=== PATIENT | female | born 2000 | race Caucasian/White ===

== ENCOUNTER 2021-10-05 18:41 | Emergency (ER) | payer MEDICAID, SELFPAY ==
[2021-10-05 19:23] VITALS: BMI 21.6
--- NOTE | 2021-10-05 19:55 | PC.NURSE ---
lab in with patient for blood draw
[2021-10-05 20:17] LABS: Microscopic, Urine URINE MICROSCOPIC (MICROSCOPIC)
[2021-10-05 20:25] LABS: Appearance,Urine CLEAR (Clear); Bilirubin,Urine Negative (Negative); Blood, Urine 3+ (Negative); Color,Urine YELLOW (Yellow); Glucose,Urine (UA) Negative (Negative); Ketones,Urine Negative (Negative); Leukocyte Esterase,Urine 1+ (Negative); Nitrate,Urine Negative (Negative); Protein,Urine Negative (Negative); Urobilinogen,Urine 0.2 EU/dl (0.2)
[2021-10-05 20:31] LABS: Basophils # 0.1 K/mm3 (0-0.2); Basophils % 1.7 % (0.1-2.0); Eosinophils # 0.3 K/mm3 (0.0-0.4); Eosinophils % 3.2 % (0.1-12.0); Hematocrit 46.1 % (37.0-47.0); Hemoglobin 14.8 g/dL (12.2-16.2); Lymphocytes # 2.2 K/mm3 (0.7-4.5); Lymphocytes % 26.5 % (10-50); Mean Corpuscular Hemoglobin 29.5 pg (27.0-31.2); Mean Corpuscular Volume 91.9 fl (81-99); Mean Platelet Volume 7.5 fl (7.4-10.4); Monocytes # 0.5 K/mm3 (0.1-1.0); Monocytes % 6.3 % (1.7-9.3); Neutrophils # 5.1 K/mm3 (1.8-7.8); Neutrophils % 62.2 % (37.0-80.0); Platelet Count 406 K/mm3 (142-424); Red Blood Count 5.01 M/mm3 (4.20-5.40); Red Cell Distribution Width 13.7 % (11.5-17.5); White Blood Count 8.2 K/mm3 (4.8-10.8)
[2021-10-05 20:36] LABS: Urine Pregnancy, HCG Qual. Negative (Negative)
--- NOTE | 2021-10-05 20:36 | PC.NURSE ---
s/w Lab to check time on test. Melony states that it is completed
--- NOTE | 2021-10-05 20:48 | HMH.EDUROGF ---
ED Disposition Clinical Impression: DUB (dysfunctional uterine bleeding) Disposition: Home, Self-Care Condition on Discharge: Good Instructions: DI for Vaginal Bleeding Additional Instructions: fluids and call pcp and tug boat captain for follow up Referrals: Provider,Referral, MD [Primary Care Provider] - - Critical Care Critical Care Time: No Attestation: On 10/05/21, the high probability of a clinically significant, sudden or life threatening deterioration of the following system(s) required my full and direct attention, intervention and personal management. The time I documented below is in addition to time spent performing reported procedures but includes the following listed in this critical care notation. Medical Decision Making - Medical Records Medical records reviewed: Yes: I reviewed the patient's medical records. - West Inquiry Pt receiving controlled substance: No - Lab Data Lab results reviewed: Yes: I reviewed the patient's lab results. Lab Results 10/05/21 19:50: WBC 8.2, RBC 5.01, Hgb 14.8, Hct 46.1, MCV 91.9, MCH 29.5, MCHC 32.0, RDW 13.7, Plt Count 406, MPV 7.5, Neut % (Auto) 62.2, Lymph % (Auto) 26.5, [place] % (Auto) 6.3, Eos % (Auto) 3.2, Baso % (Auto) 1.7, Neut # (Auto) 5.1, Lymph # (Auto) 2.2, [place] # (Auto) 0.5, Eos # (Auto) 0.3, Baso # (Auto) 0.1 10/05/21 20:00: Urine HCG, Qual Negative Result diagrams: 10/05/21 19:50 Orders (Tests/Meds): ED MEDICATIONS Generic Name Dose Route Start Last Admin Trade Name Freq PRN Reason Stop Dose Admin Lactated Ringer's 1,000 mls @ 999 mls/hr 10/05/21 20:15 10/05/21 20:05 Lactated Ringer's 1000 Ml Bag IV 10/05/21 21:15 999 mls/hr .Q1H1M KAMRAN Administration ORDERS Category Date Time Status ABO/RH Type Stat BBK 10/05/21 19:48 Received HCG,Quantitative Stat Lab 10/05/21 19:48 Received UA [Urinalysis and Microscopic] Stat Lab 10/05/21 20:00 Received Medical Decision Narrative: has abn vaginal bleeding with neg preg test and stable vital signs and blood work Female Urogenital HPI - General Stated complaint: Home Preg test +, Bleeding Time Seen by Provider: 10/05/21 20:48 Mode of Arrival: Ambulatory Source of Information: Patient, Significant Other, Medical Record Limitations: No Limitations - History of Present Illness HPI Narrative: has vag bleeding and crampy pain - pos home preg test MD Complaint: vaginal bleeding Onset (ago): hour(s) Severity: moderate Sexual activity: yes : Unknown Associated symptoms: denies other symptoms - Related Data Home Medications Medication Instructions Recorded Confirmed No Known Home Medications 10/05/21 10/05/21 Allergies Allergy/AdvReac Type Severity Reaction Status Date / Time No Known Allergies Allergy Verified 10/05/21 19:32 [facility] History - Hepatitis A Screen Attestation statement:: This patient has been screened for Hepatitis A risk factors. I have reviewed the patient's past medical history: Yes ROS Obtained: Yes All systems reviewed & no additional complaints - Constitutional Constitutional: Denies fever(s) - Eyes Eyes: Denies change in vision - ENT Ears, Nose, Mouth, and Throat: Denies sore throat - Cardiovascular Cardiovascular: Denies chest pain - Respiratory Respiratory: Denies shortness of breath - Gastrointestinal Gastrointestingal: Denies: abdominal pain - Genitourinary Female Genitourinary: Reports as per HPI, Reports abnormal vaginal bleeding - Musculoskeletal Musculoskeletal: Denies joint swelling - Integumentary/Breasts Skin/Breast: Denies rash - Neurologic Neurologic: Denies seizure-like activity Physical Exam - General General appearance: alert - Head Head exam: normocephalic - Eye Eye exam: Present: PERRL, EOMI - ENT ENT exam: Present: mucous membranes moist - Neck Neck exam: Present: trachea midline - Respiratory Respiratory exam: Absent: respiratory distress - Cardiovas
[2021-10-05 21:02] LABS: HCG,Quantitative < 2 mIU/ml (0-5.42)
[2021-10-05 21:05] VITALS: BP 120/88; PULSE 65; RESP 16; TEMP 36.7; O2SAT 99
[2021-10-05 21:05] LABS: Bacteria,Urine 1+ /lpf; RBC,Urine 50-100 #/hpf (0-3)
== END 2021-10-05 21:19 | disposition home or self-care (01) ==
PROVIDERS: Emergency Provider Emergency Medicine
DX: N93.8 Other specified abnormal uterine and vaginal bleeding (principal)
CPT/HCPCS: 81001; 81025; 84702; 85025; 86900; 86901; 87086; 87088; 87186; 96360; 96365

== ENCOUNTER → 2021-12-06 15:59 | Outpatient (CLI) | payer MEDICAID, SELFPAY ==
[2021-12-06 17:37] LABS: HCG,Quantitative 6673 mIU/ml (0-5.42)
== END ==
PROVIDERS: Visit Provider Obstetrics & Gynecology
DX: Z34.90 Encounter for supervision of normal pregnancy, unspecified, unspecified trimester (principal)
CPT/HCPCS: 36415; 84702

== ENCOUNTER → 2021-12-08 13:08 | Outpatient (CLI) | payer MEDICAID, SELFPAY ==
[2021-12-08 14:06] LABS: HCG,Quantitative 12791 mIU/ml (0-5.42)
== END ==
PROVIDERS: Visit Provider Obstetrics & Gynecology
DX: Z34.90 Encounter for supervision of normal pregnancy, unspecified, unspecified trimester (principal)
CPT/HCPCS: 36415; 84702

== ENCOUNTER 2021-12-14 03:35 | Emergency (ER) | payer MEDICAID, SELFPAY ==
[2021-12-14 03:36] VITALS: BP 120/77; PULSE 90; RESP 20; TEMP 36.9; O2SAT 98; BMI 23.6
[2021-12-14 05:21] VITALS: BP 128/80; PULSE 85; PULSE 87; O2SAT 100
--- NOTE | 2021-12-14 05:28 | HMH.EDDENT ---
ED Disposition Clinical Impression: Dental caries, Pain, dental Qualifiers: Weeks of gestation: unspecified Qualified Code(s): Z34.90 - Encounter for supervision of normal , unspecified, unspecified trimester Disposition: Home, Self-Care Condition on Discharge: Good Instructions: DI for Dental Pain Additional Instructions: no motrin and call ob this am or pcp Prescriptions: cephALEXin [cephALEXin 500mg capsule*] 500 mg PO TID #30 cap Transmission Status: Pending to [id number] Referrals: Provider,MD Frankie [Primary Care Provider] - Shanel Rodas DO [Physician] - Ivan Bentley MD [Staff Physician] - Elvia Martinez MD [Staff Physician] - - Critical Care Critical Care Time: No Attestation: On 12/14/21, the high probability of a clinically significant, sudden or life threatening deterioration of the following system(s) required my full and direct attention, intervention and personal management. The time I documented below is in addition to time spent performing reported procedures but includes the following listed in this critical care notation. Medical Decision Making - Medical Records Medical records reviewed: Yes: I reviewed the patient's medical records. - [place] Inquiry Pt receiving controlled substance: No Vital Signs: 12/14/21 03:36 12/14/21 05:21 Temperature 98.5 F Temperature Source Oral Pulse Rate 85 Pulse Rate [Right] 90 Respiratory Rate 20 Blood Pressure 128/80 Blood Pressure [Right Arm] 120/77 Blood Pressure Mean 91 Blood Pressure Mean [Right Arm] 91 Blood Pressure Source [Right Arm] Automatic Cuff 02 Sat by Pulse Oximetry 98 100 Oxygen Delivery Method Room Air Room Air Orders (Tests/Meds): ED MEDICATIONS Generic Name Dose Route Start Last Admin Trade Name Freq PRN Reason Stop Dose Admin Benzocaine/Butamben/Tetracaine HCl 1 gm 12/14/21 04:58 12/14/21 05:05 Tetracaine/Benzocaine/Butamben 56 Gm [place] TP 01/13/22 04:57 1 gm NEEDED PRN Administration dental pain Discontinued Medications Generic Name Dose Route Start Last Admin Trade Name Freq PRN Reason Stop Dose Admin Lidocaine HCl 15 ml 12/14/21 04:58 12/14/21 05:05 Lidocaine 2% Viscous Anna 15ml Udc PO 12/14/21 04:59 15 ml ONCE ONE Administration Medical Decision Narrative: please call ob for follow up and dentist and use meds as directed Dental HPI - General Chief complaint: Dental/Oral Stated complaint: tooth pain x2 days Time Seen by Provider: 12/14/21 05:28 Mode of Arrival: Family Vehicle Source of Information: Patient, Significant Other, Medical Record Limitations: No Limitations Description of Symptoms (Recalled from ER Triage Doc. by RN): Pt c/o toothache for 2 days to R & lower side. It is a broken tooth with decay. Pt also reports to be 6 wk . Denies any fever or chills. She has not seen a dentist, though reports she was told she need to have her teeth removed. - History of Present Illness HPI Narrative: has dental pain rt lower jaw sec to caries MD Complaint: tooth pain Onset (ago): day(s) Duration: intermittent Severity: moderate Relieving factors: nothing Context: history of dental caries, poor dental care Treatment prior to arrival: none - Related Data Previous Rx's Medication Instructions Recorded cephALEXin [cephALEXin 500mg 500 mg PO TID #30 cap 12/14/21 capsule*] Allergies Allergy/AdvReac Type Severity Reaction Status Date / Time No Known Allergies Allergy Verified 10/05/21 19:32 [facility] History - Hepatitis A Screen Attestation statement:: This patient has been screened for Hepatitis A risk factors. I have reviewed the patient's past medical history: Yes ROS Obtained: Yes All systems reviewed & no additional complaints - Constitutional Constitutional: Denies fever(s) - Eyes Eyes: Denies change in vision - ENT Ears, Nose, Mouth, and Throat: Reports as per HPI, Repor
[2021-12-14 06:12] VITALS: BP 127/72; PULSE 72; RESP 17; TEMP 36.7; O2SAT 99
== END 2021-12-14 06:13 | disposition home or self-care (01) ==
PROVIDERS: Emergency Provider Emergency Medicine
DX: K02.9 Dental caries, unspecified (principal); Z34.90 Encounter for supervision of normal pregnancy, unspecified, unspecified trimester
CPT/HCPCS: 99283

== ENCOUNTER → 2021-12-27 09:06 | Outpatient (CLI) | payer MEDICAID, SELFPAY ==
--- NOTE | 2021-12-27 09:19 | US_ITS ---
FINAL REPORT CLINICAL HISTORY: dates FINDINGS: PELVIC ULTRASOUND A single living intrauterine is present. A yolk sac is identified. Cardiac activity is confirmed at 153 beats per minute. Estimated gestational age is 8 weeks 1 days based on a crown-rump length of 1.6 cm. Appropriate amount of fluid is present. The right ovary measures 3.6 cm and the left ovary measures 2.3 cm. There is a 1.5 cm right ovarian cyst. IMPRESSION: Single living intrauterine with an estimated gestational age of 8 weeks 1 day. Reviewed, Interpreted and Dictated by Amrik Henderson III, MD Transcribed by Clyde Burrell Authenticated and [facility]
== END ==
PROVIDERS: Visit Provider Obstetrics & Gynecology
DX: Z34.90 Encounter for supervision of normal pregnancy, unspecified, unspecified trimester (principal)
CPT/HCPCS: 76801

== ENCOUNTER → 2022-01-06 05:57 | Outpatient (CLI) | payer MEDICAID, SELFPAY | PROVIDERS: Visit Provider Obstetrics & Gynecology | DX: Z34.90 Encounter for supervision of normal pregnancy, unspecified, unspecified trimester (principal) | CPT/HCPCS: 87086 ==

== ENCOUNTER → 2022-01-24 15:30 | Outpatient (CLI) | payer MEDICAID, SELFPAY ==
[2022-01-24 17:58] LABS: Basophils # 0.1 K/mm3 (0-0.2); Basophils % 0.8 % (0.1-2.0); Eosinophils # 0.2 K/mm3 (0.0-0.4); Eosinophils % 2.3 % (0.1-12.0); Hematocrit 39.9 % (37.0-47.0); Lymphocytes # 1.6 K/mm3 (0.7-4.5); Lymphocytes % 16.3 % (10-50); Mean Corpuscular HGB Conc 32.7 g/dL (31.8-35.4); Mean Corpuscular Hemoglobin 30.3 pg (27.0-31.2); Mean Corpuscular Volume 92.6 fl (81-99); Mean Platelet Volume 7.9 fl (7.4-10.4); Monocytes # 0.6 K/mm3 (0.1-1.0); Monocytes % 5.9 % (1.7-9.3); Neutrophils # 7.1 K/mm3 (1.8-7.8); Neutrophils % 74.7 % (37.0-80.0); Platelet Count 368 K/mm3 (142-424); White Blood Count 9.5 K/mm3 (4.8-10.8)
[2022-01-26 07:13] LABS: Hepatitis B Surface Antigen Negative (Negative); Hepatitis C Antibody 0.1 s/co ratio (0.0-0.9)
[2022-01-26 08:20] LABS: HIV Screen 4th Generation wRfx Non Reactive (Non Reactive); Rubella Antibodies, IgG 3.19 index (Immune >0.99)
[2022-01-26 11:32] LABS: Rapid Plasma Reagin Ab Titer Non Reactive (NonRea<1:1)
== END ==
PROVIDERS: Visit Provider Obstetrics & Gynecology
DX: Z34.90 Encounter for supervision of normal pregnancy, unspecified, unspecified trimester (principal)
CPT/HCPCS: 36415; 85025; 86592; 86703; 86762; 86850; 87340; 87380; G0432

== ENCOUNTER → 2022-03-29 10:03 | Outpatient (CLI) | payer MEDICAID, SELFPAY ==
--- NOTE | 2022-03-29 10:11 | US_ITS ---
FINAL REPORT CLINICAL HISTORY: US OB Complete FINDINGS: There is a single live intrauterine gestation. Presentation is cephalic. The cervix is closed and measures 3.1 cm. Placenta is posterior, grade 1. movement is noted. The heart rate is measured at 155 beats per minute. Three-vessel cord with satisfactory umbilical cord insertion. Four-chamber heart is noted. brain and ventricles are unremarkable. Chest and diaphragm are unremarkable. ABDOMEN: Both kidneys are unremarkable. Stomach is unremarkable. SPINE: No anomalies identified. Both arms and legs noted. AMNIOTIC FLUID: Appropriate amount. MEASUREMENTS: ULTRASOUND AGE: 21 weeks 1 days. GESTATION AGE: 1 weeks 2 days. ESTIMATED WEIGHT: 385 g GROWTH PERCENTILE: 26% LMP percentile BPD: 5.2 cm corresponding with 21 weeks 6 days. OFD: 6.5 cm corresponding with 21 weeks 30 days. HC: 18.4 cm corresponding with 20 weeks 6 days. AC: 16 cm corresponding with 21 weeks 1 days. FL: 3.4 cm corresponding with 20 weeks 5 days. CEREBELLUM: 2.1 cm corresponding with 21 weeks 2 days. HUMERUS: 3.2 cm corresponding with 20 weeks 6 days. HC/AC: 1.16 CI: 81% FL/BPD: 65% FL/AC: 21% IMPRESSION: Single living IUP with an ultrasound age of 21 weeks 1 days. No anomalies noted. Reviewed, Interpreted and Dictated by Amrik Henderson III, MD Transcribed by Kirstie Ramos Authenticated and [facility]
== END ==
PROVIDERS: PCP Obstetrics & Gynecology; Visit Provider Obstetrics & Gynecology
DX: Z34.90 Encounter for supervision of normal pregnancy, unspecified, unspecified trimester (principal); Z3A.14 14 weeks gestation of pregnancy
CPT/HCPCS: 76811

== ENCOUNTER → 2022-05-15 12:43 | Outpatient (CLI) | payer MEDICAID, SELFPAY ==
[2022-05-15 13:24] LABS: Basophils % 0.3 % (0.1-2.0); Eosinophils # 0.4 K/mm3 (0.0-0.4); Eosinophils % 3.5 % (0.1-12.0); Hematocrit 39.3 % (37.0-47.0); Hemoglobin 12.7 g/dL (12.2-16.2); Lymphocytes # 1.7 K/mm3 (0.7-4.5); Lymphocytes % 17.1 % (10-50); Mean Corpuscular HGB Conc 32.4 g/dL (31.8-35.4); Mean Corpuscular Hemoglobin 30.2 pg (27.0-31.2); Mean Corpuscular Volume 93.3 fl (81-99); Mean Platelet Volume 7.1 fl (7.4-10.4); Monocytes # 0.7 K/mm3 (0.1-1.0); Monocytes % 6.9 % (1.7-9.3); Neutrophils # 7.3 K/mm3 (1.8-7.8); Neutrophils % 72.2 % (37.0-80.0); Platelet Count 352 K/mm3 (142-424); Red Blood Count 4.22 M/mm3 (4.20-5.40); Red Cell Distribution Width 14.8 % (11.5-17.5)
[2022-05-15 13:56] LABS: Glucose,Fasting 67 mg/dl (74-100)
[2022-05-15 15:42] LABS: Glucose 1 Hour 81 mg/dL (74-100)
== END ==
PROVIDERS: PCP Obstetrics & Gynecology; Visit Provider Obstetrics & Gynecology
DX: Z34.90 Encounter for supervision of normal pregnancy, unspecified, unspecified trimester (principal)
CPT/HCPCS: 36415; 82951; 85025

== ENCOUNTER → 2022-06-20 13:21 | Outpatient (CLI) | payer MEDICAID, SELFPAY ==
--- NOTE | 2022-06-20 13:21 | US_ITS ---
FINAL REPORT CLINICAL HISTORY: sga FINDINGS: There is a single live intrauterine gestation. Presentation is cephalic. Placenta is posterior, grade 1. The cervix measures 3.1 cm. Heart rate is 133 beats per minute. The fetus is active. AMNIOTIC FLUID: Appropriate amount. PRATEEK: 15.3 cm MEASUREMENTS: ULTRASOUND AGE: 33 weeks 4 days. GESTATION AGE: 33 weeks 1 days. ESTIMATED WEIGHT: 2173 g GROWTH PERCENTILE: 47% LMP percentile BPD: 8.6 cm corresponding with 34 weeks 4 days. OFD: 10.6 cm corresponding with 33 weeks 3 days. HC: 30.3 cm corresponding with 33 weeks 5 days. AC: 29.9 cm corresponding with 33 weeks 6 days. FL: 6.2 cm corresponding with 32 weeks 0 days. HC/AC: 1.01 CI: 81% FL/BPD: 72% FL/AC: 21% IMPRESSION: Single living IUP with an ultrasound age of 33 weeks 4 days. PRATEEK of 15.3 cm Reviewed, Interpreted and Dictated by Amrik Henderson III, MD Transcribed by Kirstie Ramos Authenticated and [facility]
== END ==
PROVIDERS: PCP Obstetrics & Gynecology; Visit Provider Obstetrics & Gynecology
DX: O36.5990 Maternal care for other known or suspected poor fetal growth, unspecified trimester, not applicable or unspecified (principal)
CPT/HCPCS: 76816

== ENCOUNTER 2022-07-12 14:10 | Emergency (ER) | payer MEDICAID, SELFPAY ==
[2022-07-12 14:23] VITALS: BP 119/66; PULSE 98; RESP 17; TEMP 36.4; O2SAT 98; BMI 25.0
--- NOTE | 2022-07-12 15:26 | HMH.EDGENADL ---
Discharge Plan Disposition Patient Disposition: Home, Self-Care Condition: Good Prescriptions Prescriptions: No Action Classic 28 mg iron- 800 mcg tablet 1 tab PO DAILY Qty: 30 11RF omeprazole 20 mg capsule,delayed release(DR/EC) 20 mg PO DAILY Qty: 30 4RF Referrals Follow up/Referrals: Provider,Referral, [Primary Care Provider] - See instructions Clinical Impressions Clinical Impression: Pilonidal cyst with abscess Instructions Patient Instructions: Pilonidal Cyst, DI for Incision and Drainage of a Skin Abscess Discharge ED Provider: Abel Benito General Adult HPI General Chief complaint: Skin/Abscess/Foreign Body Stated complaint: Possible boil on bottom 36 weeks Time Seen by Provider: 07/12/22 14:30 Mode of Arrival: Ambulatory Source of Information: Patient Limitations: No Limitations Description of Symptoms (Recalled from ER Triage Doc. by RN): Patient reports 3 days ago a boil came up on her sacral area. Denies history of this in the past. No drainage, fever, chills. Patient is 36 wks . History of Present Illness HPI narrative: Patient is a 21-year-old female with no pertinent past medical history who presents with concern for pilonidal abscess. She says that over the last 3 days she has had pain in the upper part of her gluteal cleft. She says he never had this happen in the past. She says it is gotten substantially worse today and she wanted to come in for evaluation. She does endorse some chills. Denies any fever. Denies any chest or abdominal pain. Denies any drainage from the area. Related Data Previous Rx's Medication Instructions Recorded vits no.126-ferrous fum 1 tab PO DAILY #30 tabs 01/05/22 28 mg iron-folic acid 800 mcg tablet (Classic ) omeprazole 20 mg capsule,delayed 20 mg PO DAILY #30 caps 07/04/22 release Allergies Allergy/AdvReac Type Severity Reaction Status Date / Time No Known Allergies Allergy Verified 07/04/22 15:21 [facility] Disclaimer: The information contained in this section may have been updated after the patient was seen, as this information can be updated by other users. Social History Smoking Status: Never smoker alcohol intake: never substance use type: denies use current occupational status: employed Travel in the last 8 weeks: None ROS Obtained: Yes All systems reviewed & no additional complaints except as documented A 14 point review of system was obtained and otherwise negative except per HPI Physical Exam General General appearance: alert and in no apparent distress Head Head exam: atraumatic, normocephalic and normal inspection Eye Eye exam: Present normal appearance, PERRL and EOMI ENT ENT exam: Present normal exam, normal oropharynx, mucous membranes moist and normal external ear exam Neck Neck exam: Present normal inspection, full ROM and trachea midline; Absent meningismus or lymphadenopathy Chest Chest inspection: Present normal inspection and symmetric chest wall rise; Absent tenderness Respiratory Respiratory exam: Present normal lung sounds bilaterally; Absent respiratory distress Cardiovascular Cardiovascular exam: Present regular rate and normal rhythm Abdominal Exam Abdominal exam: Present soft; Absent distention, tenderness or guarding Extremities Exam Extremities exam: Present normal inspection, full ROM and normal capillary refill; Absent calf tenderness Back Exam Back exam: Present normal inspection; Absent tenderness Neurological Exam Neurological exam: Present alert and oriented X3 Psychiatric Psychiatric exam: Present normal affect and normal mood Skin Skin exam: Present warm, dry, intact and normal color Expanded Skin Exam Type of lesion: Present abscess (4 x 4 centimeter gluteal cleft pilonidal abscess) Lymphatic Lymphatic Findings: no adenopathy Medical Decision Making Medical Recor
[2022-07-12 15:41] VITALS: BP 92/44; PULSE 97; RESP 18; TEMP 36.4; O2SAT 100
== END 2022-07-12 15:45 | disposition home or self-care (01) ==
PROVIDERS: Emergency Provider Student in an Organized Health Care Education/Training Program
DX: L05.01 Pilonidal cyst with abscess (principal); O99.713 Diseases of the skin and subcutaneous tissue complicating pregnancy, third trimester; Z3A.36 36 weeks gestation of pregnancy
CPT/HCPCS: 10080; 10061; 99283; 99284

== ENCOUNTER → 2022-07-18 17:07 | Outpatient (CLI) | payer MEDICAID, SELFPAY | PROVIDERS: Visit Provider Obstetrics & Gynecology | DX: Z34.90 Encounter for supervision of normal pregnancy, unspecified, unspecified trimester (principal); Z3A.35 35 weeks gestation of pregnancy; L05.01 Pilonidal cyst with abscess | CPT/HCPCS: 86403; 87070; 87077; 87186; 87205 ==

== ENCOUNTER 2022-07-31 05:26 | Inpatient (IN) | payer MEDICAID, SELFPAY ==
[2022-07-31 05:38] VITALS: BMI 30.4
[2022-07-31 06:36] LABS: Coronavirus 19, PCR Not Detected (NotDetected); Influenza A, PCR Not Detected (NotDetected); Influenza B, PCR Not Detected (NotDetected); Microscopic, Urine URINE MICROSCOPIC (MICROSCOPIC)
[2022-07-31 06:41] LABS: Basophils # 0.1 K/mm3 (0-0.2); Basophils % 1.4 % (0.1-2.0); Eosinophils # 0.2 K/mm3 (0.0-0.4); Eosinophils % 1.9 % (0.1-12.0); Hematocrit 38.3 % (37.0-47.0); Hemoglobin 12.9 g/dL (12.2-16.2); Lymphocytes # 1.8 K/mm3 (0.7-4.5); Lymphocytes % 21.1 % (10-50); Mean Corpuscular HGB Conc 33.7 g/dL (31.8-35.4); Mean Corpuscular Hemoglobin 29.2 pg (27.0-31.2); Mean Corpuscular Volume 86.4 fl (81-99); Mean Platelet Volume 7.5 fl (7.4-10.4); Monocytes # 0.5 K/mm3 (0.1-1.0); Neutrophils # 5.8 K/mm3 (1.8-7.8); Neutrophils % 69.5 % (37.0-80.0); Platelet Count 316 K/mm3 (142-424); Red Blood Count 4.43 M/mm3 (4.20-5.40); Red Cell Distribution Width 15.2 % (11.5-17.5); White Blood Count 8.3 K/mm3 (4.8-10.8)
[2022-07-31 06:49] LABS: Appearance,Urine CLEAR (Clear); Bilirubin,Urine Negative (Negative); Blood, Urine Negative (Negative); Color,Urine YELLOW (Yellow); Glucose,Urine (UA) Negative (Negative); Ketones,Urine Negative (Negative); Leukocyte Esterase,Urine TRACE (Negative); Nitrate,Urine Negative (Negative); PH,Urine 6.5 (5.0-8.5); Protein,Urine Negative (Negative); Urobilinogen,Urine 0.2 EU/dl (0.2)
[2022-07-31 07:00] LABS: Bacteria,Urine Trace /lpf; WBC,Urine Occasional #/hpf (0-3)
[2022-07-31 07:01] LABS: Amphetamine/Metha Screen,Urine Negative ng/ml (<1000)
[2022-07-31 07:02] LABS: Barbiturates Screen,Urine Negative ng/ml (<200); Benzodiazepines Screen,Urine Negative ng/ml (<200)
[2022-07-31 07:03] LABS: Cannabinoid Screen,Urine Negative ng/ml (<50)
[2022-07-31 07:04] LABS: Cocaine Screen,Urine Negative ng/ml (<300); Methadone Screen,Urine Negative ng/ml (<300)
[2022-07-31 07:05] LABS: Opiate Screen,Urine Negative ng/ml (<300); Phencyclidine Screen,Urine Negative ng/ml (<25)
[2022-07-31 07:06] VITALS: BP 115/71; PULSE 100; RESP 18; TEMP 36.5; O2SAT 98; BMI 30.4
--- NOTE | 2022-07-31 07:15 | HMH.PHAINT1 ---
Pharmacy Intervention Comments: MEDICATION RECONCILIATION COMPLETED ON PATIENT USING EXTERNAL FILL HISTORY FROM PHARMACY. -PEGGY MOELLER, ARANZAD
[2022-07-31 07:34] VITALS: BP 102/60; PULSE 83; RESP 18; TEMP 36.4; O2SAT 98
--- NOTE | 2022-07-31 08:16 | EXP.HP ---
History of Present Illness *Admission Date: 07/31/22 *Reason for visit:: Labor induction *History of present illness: 22 yo admitted for labor induction @ 39 0/7 care at [facility]-- Dr. Martinez RUSTAM 08/07/22; dating by 8 17 ultrasound uncomplicated She has a history of chlamydia cervicitis but cultures were negative during She had pilonidal cyst 3 weeks ago which required I&D (in ED) Packing was replaced during appt 1.5 weeks ago because the original packing fell out She was also started on antibiotics at that time [facility] Disclaimer: The information contained in this section may have been updated after the patient was seen, as this information can be updated by other users. Medical History (Updated 07/31/22 @ 12:23 by Elvia Martinez MD) ASCUS with positive high risk HPV Dental caries No significant past medical history Pilonidal cyst with abscess Family History No significant family history Diabetes Alcoholism Hyperlipidemia Heart attack Cancer Hypertension Stroke Asthma Social History (Updated 07/31/22 @ 07:11 by Racheal Nichols RN) Smoking Status: Never smoker alcohol intake: never substance use type: denies use current occupational status: unemployed Travel in the last 8 weeks: None Review of Systems Constitutional Constitutional: Reports system reviewed and no additional complaints, except as documented and Denies headache(s) ENT Ears, Nose, Mouth, and Throat: Denies headache(s) *Genitourinary Genitourinary: Denies abnormal vaginal bleeding *Neurologic Neurologic: Denies headache(s) and Denies other visual disturbances Meds Home Medications and Allergies Home Medications Medication Instructions Recorded Confirmed Type omeprazole 20 mg capsule,delayed 20 mg PO DAILY Heartburn 07/31/22 07/31/22 History release vits no.126-ferrous fum 1 tab PO DAILY Supplement 07/31/22 07/31/22 History 28 mg iron-folic acid 800 mcg tablet (Classic ) New Prescriptions to Start Prescriptions: Allergies Allergy/AdvReac Type Severity Reaction Status Date / Time No Known Allergies Allergy Verified 07/27/22 15:52 Exam Data for Last 24 hours Vital signs and Labs for Last 24 Hours: Temp Pulse Resp BP Pulse Ox 97.5 F L 83 18 102/60 L 98 07/31/22 07:34 07/31/22 07:34 07/31/22 07:34 07/31/22 07:34 07/31/22 07:34 Laboratory Results - last 24 hr 07/31/22 05:43: Urine Color Yellow, Urine Appearance Clear, Urine pH 6.5, Ur Specific [place] 1.020, Urine Protein Negative, Urine Glucose (UA) Negative, Urine Ketones Negative, Urine Blood Negative, Urine Nitrate Negative, Urine Bilirubin Negative, Urine Urobilinogen 0.2, Ur Leukocyte Esterase Trace, Urine RBC None, Urine WBC Occasional, Ur Squamous Epith Cells 3-5, Urine Bacteria Trace 07/31/22 05:43: SARS-CoV-2 (PCR) Not detected, Influenza A Untype (PCR) Not detected, Influenza Type B (PCR) Not detected 07/31/22 05:43: Urine Opiates Screen Negative, Urine Methadone Screen Negative, Ur Barbituates Screen Negative, Ur Phencyclidine Scrn Negative, Ur Amphetamines Screen Negative, U Benzodiazepines Scrn Negative, Urine Cocaine Screen Negative, U Marijuana (THC) Screen Negative 07/31/22 06:10: WBC 8.3, RBC 4.43, Hgb 12.9, Hct 38.3, MCV 86.4, MCH 29.2, MCHC 33.7, RDW 15.2, Plt Count 316, MPV 7.5, Neut % (Auto) 69.5, Lymph % (Auto) 21.1, [place] % (Auto) 6.0, Eos % (Auto) 1.9, Baso % (Auto) 1.4, Neut # (Auto) 5.8, Lymph # (Auto) 1.8, [place] # (Auto) 0.5, Eos # (Auto) 0.2, Baso # (Auto) 0.1 07/31/22 06:10: Blood Type O Positive, Antibody Screen Negative I & O for Last 24 hours: Intake & Output 07/29/22 07/30/22 07/31/22 08/01/22 11:59 11:59 11:59 11:59 Weight 189 lb 0.001 oz Constitutional Constitutional: no acute distress *Routine HEENT Exam Head: Present normocephalic Eye: Absent conjunctival icterus or scleral injecti
--- NOTE | 2022-07-31 11:16 | P.PN_ITS ---
[facility] Disclaimer: The information contained in this section may have been updated after the patient was seen, as this information can be updated by other users. Medical History No significant past medical history Family History Other Alcoholism Asthma Cancer Diabetes Heart attack Hyperlipidemia Hypertension No significant family history Stroke Social History (Updated 07/31/22 @ 07:11 by Racheal Nichols RN) Smoking Status: Never smoker alcohol intake: never substance use type: denies use current occupational status: unemployed Travel in the last 8 weeks: None [facility] Anesthesia Checklist Patient Identification Patient Identification: Arm Band Structural Data Admitted From: Inpatient Planned Operative Procedure/s: Labor Epidural Consent for Planned Operative Procedure(s) Verified: Yes Verified Documents: Surgical Consent and History and Physical NPO Status Verified Time NPO: 00:00 Additional verifications Anesthesia Reactions: No Airway Assessment C-Spine Mobility Assessed: Yes TMJ Mobility Assessed: Yes Neurological Assessment Level of Consciousness: Awake and Alert Anesthesia Plan Anesthesia Risk discussed: Yes Anesthesia Plan: Verified ASA Class: II Anesthesia Type: Epidural
[2022-07-31 17:29] VITALS: BP 112/72; PULSE 91; RESP 18; TEMP 36.6; O2SAT 98
--- NOTE | 2022-07-31 17:36 | EXP.DN ---
Delivery Note Delivery Date:: 07/31/22 Delivery Time:: 15:22 Anesthesia Type: Epidural Was labor medically induced?: Yes Induction method: per pitocin protocol Gestational age (weeks): 39 delivered prior to 39 weeks?: No Gender: Male at 1 minute: 8 at 5 minutes: 9 Delivery Procedure:: Spontaneous vaginal delivery of vigorous, live born male infant over intact perineum. Delivery precipitous but uncomplicated Nuchal cord x 1 reduced on perineum No shoulder dystocia with delivery placed in SOFIA immediately after delivery, with standard nursing assessment performed by nursing staff Apgars: 8 & 9 Placenta spontaneously expressed and examined; noted to be complete/intact. Vulva, vagina, and cervix inspected; no lacerations present EBL: 300 cc All sponge/needle/instrument counts correct at conclusion of procedure Placental Delivery Description: Spontaneous
[2022-08-01 06:38] LABS: Hematocrit 37.6 % (37.0-47.0); Hemoglobin 12.2 g/dL (12.2-16.2)
--- NOTE | 2022-08-01 08:43 | EXP.ACUTE.PN ---
Subjective *Date: 08/01/22 *Time: 08:43 Interval history: PPD #1 No unusual complaints Ambulating and voiding without difficulty Tolerating regular diet Lochia appropriate and Hgb is stable Pain control is sufficient is doing well Medical Exam Vital signs and Labs for Last 24 Hours: Vital Signs Temp Pulse Resp BP Pulse Ox 07/31/22 17:29 98 F 91 H 18 112/72 98 Intake and Output 07/31/22 08/01/22 08/01/22 19:59 03:59 11:59 Output Total 950 / 950 Balance -950 / -950 Output: Output, Urine Amount 950 / 950 Laboratory Results - last 24 hr 08/01/22 06:26: Hgb 12.2, Hct 37.6 I & O for Labs for Last 24 Hours: Intake & Output 07/29/22 07/30/22 07/31/22 08/01/22 11:59 11:59 11:59 11:59 Output Total 950 / 950 Balance -950 / -950 Weight 189 lb 0.001 oz Comment:: No acute distress Comment:: breathing unlabored Comment:: Regular rate, normal peripheral pulses Comments:: abdomen soft, non-tender, non-distended Comment:: uterine fundus firm below umbilicus Comment:: 1+ edema bilateral lower extremities Comment:: no rash Assessment and Plan *Assessment and plan (1) 39 weeks gestation of : Status: Acute Category: Medical Code(s): Z3A.39 - 39 weeks gestation of (2) Normal spontaneous vaginal delivery: Status: Acute Category: Medical Code(s): O80 - Encounter for full-term uncomplicated delivery Plan Routine care Anticipate discharge home tomorrow
[2022-08-02 07:58] VITALS: BP 102/61; PULSE 85; RESP 18; TEMP 36.8; O2SAT 95
--- NOTE | 2022-08-02 10:38 | EXP.DC.SUM ---
General Admission date:: 07/31/22 Discharge date: 08/02/22 HPI HPI HPI: 22 yo admitted for labor induction @ 39 0/7 care at [facility]-- Dr. Martinez RUSTAM 08/07/22; dating by 8 07/01 ultrasound uncomplicated She has a history of chlamydia cervicitis but cultures were negative during She had pilonidal cyst 3 weeks ago which required I&D (in ED) Packing was replaced during appt 1.5 weeks ago because the original packing fell out She was also started on antibiotics at that time Hospital Course Hospital Course Hospital Course: She was started on IV oxytocin had her membranes ruptured. She progressed to full dilation and delivered spontaneously a liveborn male child at 3:22 PM in the afternoon of July 31, 2022. The baby weighed 7 pounds 12 ounces and was 19-1/2 inches long. He had Apgars of 8 at 1 minute and 9 at 5 minutes. She has done well and has remained afebrile throughout hospitalization. She is eating and drinking and ambulating. She is bottlefeeding. Her lochia is normal. She is discharged home to follow-up with Dr. Martinez in approximately 2 weeks time. She will continue with her vitamins and iron. She is taking [id number] analgesics. She was given the usual instructions with respect to limiting her activity, driving and sexual activity. Her federal judge is Dr. Bellamy. Her condition on discharge is stable and improved. Exam Data for Last 24 hours Vital signs and Labs for Last 24 Hours: Temp Pulse Resp BP Pulse Ox 98 F 91 H 18 112/72 98 07/31/22 17:29 07/31/22 17:29 07/31/22 17:29 07/31/22 17:29 07/31/22 17:29 I & O for Last 24 hours: Intake & Output 07/30/22 07/31/22 08/01/22 08/02/22 11:59 11:59 11:59 11:59 Output Total 950 / 950 Balance -950 / -950 Weight 189 lb 0.001 oz Constitutional Constitutional: no acute distress *Routine HEENT Exam Head: Present normocephalic ENT: Present mucous membranes moist *Routine Respiratory Exam Respiratory: Present normal respiratory effort; Absent accessory muscle use DS: Diagnosis Discharge Diagnosis (1) 39 weeks gestation of : Status: Acute (2) Normal spontaneous vaginal delivery: Status: Acute Meds Home Medications and Allergies Home Medications Medication Instructions Recorded Confirmed Type omeprazole 20 mg capsule,delayed 20 mg PO DAILY Heartburn 07/31/22 07/31/22 History release vits no.126-ferrous fum 1 tab PO DAILY Supplement 07/31/22 07/31/22 History 28 mg iron-folic acid 800 mcg tablet (Classic ) New Prescriptions to Start Prescriptions: Allergies Allergy/AdvReac Type Severity Reaction Status Date / Time No Known Allergies Allergy Verified 07/27/22 15:52 Discharge Plan Disposition Patient Disposition: Home, Self-Care Discharge Order Discharge Orders: Discharge Order (Routine); Ordered 08/02/22 Ordered By: Ivan Bentley Follow up Plan Follow up with: Elvia Martinez MD [Staff Physician] - Enter time for follow up Prescriptions/Medication Reconciliation: Continued omeprazole 20 mg capsule,delayed release(DR/EC) 20 mg PO DAILY Classic 28 mg iron- 800 mcg tablet 1 tab PO DAILY Problem Reconciliation Problems Reviewed?: Yes Patient Discharge Instructions ACTIVITY: No heavy lifting DIET: continue same diet Additional Instructions: Nothing in the vagina for 6 weeks No tub baths Drink plenty of fluids Patient Instructions: Depression, Hemorrhage, DI for Labor and Delivery, Vaginal , DI for Pre-eclampsia, [facility] Post Discharge Instructions, Preventing the Spread of Coronavirus Discharge Instructions Providers Primary Care Provider: Provider,Referral Admit Provider: Elvia Martinez Attending Provider: Elvia Martinez
== END 2022-08-02 14:10 | disposition home or self-care (01) | DRG 806 ==
PROVIDERS: Admitting Provider Obstetrics & Gynecology; Visit Provider Obstetrics & Gynecology
DX: O69.81X0 Labor and delivery complicated by cord around neck, without compression, not applicable or unspecified (principal); L05.01 Pilonidal cyst with abscess; Z37.0 Single live birth; Z23 Encounter for immunization
CPT/HCPCS: 59409 ×2; 36415; 59025; 80305; 81001; 85014; 85018; 85025; 86850; 94761; C1758; C9803; G0283; U0003; U0005

== ENCOUNTER → 2022-12-07 15:02 | Outpatient (CLI) | payer BC, MEDICAID, SELFPAY ==
[2022-12-07 15:48] LABS: Basophils % 0.3 % (0.1-2.0); Eosinophils # 0.2 K/mm3 (0.0-0.4); Eosinophils % 1.5 % (0.1-12.0); Hematocrit 43.9 % (37.0-47.0); Hemoglobin 13.9 g/dL (12.2-16.2); Lymphocytes # 1.7 K/mm3 (0.7-4.5); Lymphocytes % 16.9 % (10-50); Mean Corpuscular HGB Conc 31.7 g/dL (31.8-35.4); Mean Corpuscular Hemoglobin 29.3 pg (27.0-31.2); Mean Corpuscular Volume 92.5 fl (81-99); Mean Platelet Volume 7.1 fl (7.4-10.4); Monocytes # 0.9 K/mm3 (0.1-1.0); Monocytes % 8.4 % (1.7-9.3); Neutrophils # 7.4 K/mm3 (1.8-7.8); Neutrophils % 72.9 % (37.0-80.0); Platelet Count 361 K/mm3 (142-424); Red Blood Count 4.75 M/mm3 (4.20-5.40); Red Cell Distribution Width 12.9 % (11.5-17.5); White Blood Count 10.2 K/mm3 (4.8-10.8)
[2022-12-07 15:53] LABS: Urine Pregnancy, HCG Qual. Negative (Negative)
[2022-12-07 16:15] LABS: Chloride 103 mmol/L (98-107); Potassium 3.9 mmoL/L (3.5-5.1); Sodium 139 mmol/L (136-145)
[2022-12-07 16:18] LABS: Anion Gap 14.9 mEq/L (5-15); Blood Urea Nitrogen 12 mg/dl (7-17); Carbon Dioxide 25 mmol/L (22.0-30.0); Estimated Glomerular Filt Rate 104 ml/min (>60); GFR (African American) 125 ML/MIN (>60)
[2022-12-07 16:19] LABS: Calcium 9.1 mg/dl (8.4-10.2); Glucose 83 mg/dl (74-100)
== END ==
PROVIDERS: Visit Provider Surgery
DX: Z01.812 Encounter for preprocedural laboratory examination (principal); L05.01 Pilonidal cyst with abscess
CPT/HCPCS: 36415; 80048; 81025; 85025

== ENCOUNTER 2022-12-08 11:15 | Day surgery (SDC) | payer BC, MEDICAID, SELFPAY ==
[2022-12-08] VITALS (9 sets, daily range): BP systolic 108–130; BP diastolic 54–96; PULSE 74–93; RESP 12–18; TEMP 36.1–36.9; O2SAT 97–100; BMI 28.0
--- NOTE | 2022-12-08 14:23 | EXP.OP.NOTE ---
Date of procedure: 12/08/22 Pre-op Diagnosis:: Pilonidal cyst with abscess Post-op Diagnosis:: Same Procedure performed:: Incision and drainage complex pilonidal cyst with abscess Surgeon:: Amrik Gong MD FRAME FEEDER:: Other Anesthesia: STEPHANI Estimated blood loss (mL): 5 Clinical Note:: Patient is a 22-year-old female from [place] referred for pilonidal cyst with abscess.? She is status post vaginal delivery after induction on 07/31/2022.? She had her care with Dr. Martinez.? She was noted to have pilonidal cyst with abscess upon evaluation in the emergency department on 07/12/2022.? This is her initial symptomatology.? She had bedside incision and drainage performed by by the ER physician at that time and the wound was packed with iodoform gauze.? During her admission for induction of labor and delivery she was noted to have a pilonidal cyst with abscess.? The area has been relatively controlled until the last couple days at which time she has had increasing pain and tenderness. Operative findings:: Abscessed pilonidal cyst with thick very foul-smelling somewhat bloody pus. Evidence of pilonidal disease a few centimeters caudad to most fluctuant area of abscess Operative note:: Patient was taken the operating room. She was given preoperative intravenous antibiotics. In the operating room she was placed in a supine position. General anesthesia was induced. She was repositioned in prone position. The area was prepped and draped in the standard surgical fashion. Inspection of the area revealed significant fluctuance with some surrounding induration. Few centimeters caudad to the area of central fluctuance there was evidence of some pilonidal sinus openings. There is no erythema at this location. Limited incision was made towards the inferior aspect of the most fluctuant area. There was thick foul-smelling somewhat bloody pus which exuded from the wound. This was sent for culture. Abscess cavity was probed. It was opened somewhat superiorly using electrocautery. Loculations were freed. The abscess cavity did not appear to communicate to the pilonidal sinus openings as the area was vigorously probed. Small curette was used to debride inflamed granulation tissue. Wound was irrigated. Local anesthetic was infiltrated. Wound was packed with a 1 inch plain packing gauze. Clean dry sterile dressing was applied. Condition: stable Disposition: PACU Complications:: None immediate
--- NOTE | 2022-12-08 16:41 | EXP.ANES.CKL ---
[facility] Disclaimer: The information contained in this section may have been updated after the patient was seen, as this information can be updated by other users. Medical History ASCUS with positive high risk HPV Dental caries No significant past medical history Pilonidal cyst with abscess Surgical History (Updated 12/08/22 @ 11:40 by Coleman Mckeon RN) History of bladder surgery Family History Other Alcoholism Asthma Cancer Diabetes Heart attack Hyperlipidemia Hypertension No significant family history Stroke Social History (Updated 12/08/22 @ 11:41 by Coleman Mckeon RN) Smoking Status: Never smoker alcohol intake: never substance use type: denies use current occupational status: unemployed Travel in the last 8 weeks: None [facility] Anesthesia Checklist Patient Identification Patient Identification: Arm Band and Family Structural Data Admitted From: Home Planned Operative Procedure/s: excision pilonal cyst NPO Status Verified Time NPO: 00:00 Additional verifications Patient : No Anesthesia Reactions: No Hx Blood Transfusions: No Blood Transfusion Reaction: No Cephalosporin Allergy: No Previous Colonoscopy: No Airway Assessment C-Spine Mobility Assessed: Yes TMJ Mobility Assessed: Yes Dentition: Poor Dentition Neurological Assessment Level of Consciousness: Awake, Alert, Appropriate and Follows Commands Hx Seizures: No Numbness or tingling in extremities: No Anesthesia Plan Anesthesia Risk discussed: Yes ASA Class: I Anesthesia Type: General
--- NOTE | 2022-12-08 16:46 | EXP.ANES.I ---
[facility] Anesthesia Record Part I Anesthesia Record I Intake, IV Amount: 900 Estimated blood loss (mL): 2 Urine output (mL): 0 Blood Products used (#): none Blood Pressure: 117/74 SaO2: 99 Pulse Rate: 93 Respiratory Rate: 12 Temperature: 98.4 F Patient is:: Drowsy and Stable Stable to PACU at:: 14:40
[2022-12-11 09:55] VITALS: BP 123/78; PULSE 74; TEMP 36.1
--- NOTE | 2022-12-11 09:55 | P.PNANES_ITS ---
[facility] Anesthesia Record Part II Anesthesia Record Part II Discharge Time: 15:10 Destination: Surgical Day Care (OP Surgery) PACU nurse assessment reviewed?: Yes Patient Condition:: Good Anesthesia Complications:: None Swallowing reflex intact?: Yes Cyanosis?: No Blood Pressure: 123/78 Pulse Rate: 74 Temperature: 97 F Mental Status: Alert & Oriented Pain level:: 0 Nausea and/or vomitting:: None Intake, IV Amount: 0
== END 2022-12-08 15:41 | disposition home or self-care (01) ==
PROVIDERS: Visit Provider Surgery
PROC: (CPT 10080; principal; 2022-12-08 13:00)
DX: L05.01 Pilonidal cyst with abscess (principal)
CPT/HCPCS: 10080; 87075; 87205; 96374; J2405

== ENCOUNTER 2022-12-17 13:34 | Emergency (ER) | payer BC, MEDICAID, SELFPAY ==
[2022-12-17 13:35] VITALS: BP 104/56; PULSE 79; RESP 18; TEMP 36.7; O2SAT 97; BMI 29.1
[2022-12-17 13:40] VITALS: BP 104/56; PULSE 79; O2SAT 98
--- NOTE | 2022-12-17 13:46 | PC.NURSE ---
staff at [facility]
[2022-12-17 14:00] VITALS: BP 110/76; PULSE 82; O2SAT 98
[2022-12-17 14:30] VITALS: BP 109/62; PULSE 78; O2SAT 94
--- NOTE | 2022-12-17 14:34 | [facility].EDGENADL ---
Discharge Plan Disposition Patient Disposition: Home, Self-Care Condition: Good Prescriptions Prescriptions: No Action cephalexin 500 mg capsule 500 mg PO TID Qty: 30 0RF clindamycin HCl 300 mg capsule 300 mg PO TID Qty: 30 0RF hydrocodone-acetaminophen 5-325 mg Tablet 1 - 2 tab PO Q6H PRN (Reason: Pain) Qty: 17 0RF Referrals Follow up/Referrals: Provider,Referral, [Primary Care Provider] - See instructions Clinical Impressions Clinical Impression: Change or removal of wound dressing Instructions Patient Instructions: DI for Skin Abscess Discharge ED Provider: Adolph Casper General Adult HPI General Chief complaint: Skin/Abscess/Foreign Body Stated complaint: post op evaluation Time Seen by Provider: 12/17/22 13:38 Mode of Arrival: Ambulatory Source of Information: Patient and Relative Limitations: No Limitations Description of Symptoms (Recalled from ER Triage Doc. by RN): 22 yo F presents to ED for dressing change. pt had pilondial cyst I&D with dr barton. pt has been noncompliant with dressing changes and follow up instructions. pt reports that she started a new job at [employer] and she was unable to make the daily dressing changes. History of Present Illness HPI narrative: This is a 22-year-old female with history of pilonidal cyst presenting with request for wound change. Patient states that she last had packing changed 2 days prior to arrival. Does not have any packing stuff at home. Was unable to change packing yesterday or today because she has been working. No other complaints, drainage, fevers, chills, redness, or any other problems. Related Data Previous Rx's Medication Instructions Recorded cephalexin 500 mg capsule 500 mg PO TID #30 caps 12/08/22 clindamycin HCl 300 mg capsule 300 mg PO TID #30 caps 12/08/22 hydrocodone 5 mg-acetaminophen 325 1 - 2 tab PO Q6H PRN Pain #17 tabs 12/11/22 mg tablet Allergies Allergy/AdvReac Type Severity Reaction Status Date / Time No Known Allergies Allergy Verified 12/12/22 09:27 [facility] Disclaimer: The information contained in this section may have been updated after the patient was seen, as this information can be updated by other users. Medical History (Updated 12/17/22 @ 14:39 by Adolph Casper MD) ASCUS with positive high risk HPV Dental caries No significant past medical history Pilonidal cyst with abscess Surgical History (Updated 12/12/22 @ 09:28 by JAZMINE Brush) History of bladder surgery History of excision of pilonidal cyst Family History Other Alcoholism Asthma Cancer Diabetes Heart attack Hyperlipidemia Hypertension No significant family history Stroke Social History Smoking Status: Current every day smoker alcohol intake: never substance use type: denies use current occupational status: unemployed Travel in the last 8 weeks: None ROS Obtained: Yes All systems reviewed & no additional complaints except as documented Physical Exam General General appearance: alert and in no apparent distress Respiratory Respiratory exam: Absent respiratory distress Cardiovascular Cardiovascular exam: Present regular rate and normal rhythm Neurological Exam Neurological exam: Present alert and oriented X3 Medical Decision Making Medical Records Medical records reviewed: Yes I reviewed the patient's medical records. West Inquiry Pt receiving controlled substance: No West was queried for this patient: No Vital Signs: 12/17/22 13:40 12/17/22 13:35 12/17/22 14:00 Temperature 98.0 F Temperature Source Oral Pulse Rate 79 82 Pulse Rate [Left] 79 Respiratory Rate 18 Blood Pressure 104/56 L 110/76 Blood Pressure [Right Arm] 104/56 L Blood Pressure Mean 62 85 Blood Pressure Mean [Right Arm] 72 02 Sat by Pulse Oxim
--- NOTE | 2022-12-17 14:47 | PC.NURSE ---
1 inch plain packing removed from incision on buttock. Packing is green with some dried blood noted on packing. New 1 inch plain packing applied with a 4x4 guaze, secured with tegaderm. Pt tolerated well. Significant other and pt educated on dressing change, supplies given until pt is able to get supplies.
[2022-12-17 15:40] VITALS: BP 109/62; PULSE 78; RESP 18; TEMP 36.7
== END 2022-12-17 15:45 | disposition home or self-care (01) ==
PROVIDERS: Emergency Provider Emergency Medicine
DX: L05.91 Pilonidal cyst without abscess (principal); Z91.199 Patient's noncompliance with other medical treatment and regimen due to unspecified reason; F17.200 Nicotine dependence, unspecified, uncomplicated
CPT/HCPCS: 99281; 99282

== ENCOUNTER 2023-07-26 12:58 | Outpatient (CLI) | payer MEDICAID, SELFPAY ==
[2023-07-26 14:28] LABS: HCG,Quantitative 7804 mIU/ml (0-5.42)
[2023-07-27 08:22] LABS: Progesterone 6.9 ng/mL (.)
== END 2023-07-26 23:59 ==
LOC: LAB 13:00
PROVIDERS: PCP Pediatrics; Visit Provider Obstetrics & Gynecology
DX: Z32.00 Encounter for pregnancy test, result unknown (principal)
CPT/HCPCS: 36415; 84144; 84702

== ENCOUNTER 2023-08-12 18:52 | Emergency (ER) | payer MEDICAID, SELFPAY ==
[2023-08-12 18:54] VITALS: BP 121/87; PULSE 90; RESP 20; TEMP 36.8; O2SAT 98; BMI 25.8
--- NOTE | 2023-08-12 19:17 | US_ITS ---
PROCEDURE INFORMATION: Exam: US , Transvaginal and US Duplex Artery and Vein, Ovaries, Complete Exam date and time: 08/12/2023 7:50 PM Age: 23 years old Clinical indication: Lmp or gestational age (in weeks): 8w2d; Antepartum complications; Bleeding; ; Patient HX: Unsure of last lmp-- [facility] form 7500-- 400; Additional info: 5 wks ga by dates, bleeding, preg unknown location LABS AND CLINICAL REPORTS: Last menstrual period start date: 07/04/2023 Gestational age (Established): 5 w 4 d Estimated due date (Established): 04/09/2024 TECHNIQUE: Imaging protocol: Real-time transvaginal obstetrical ultrasound of the maternal pelvis and a first trimester with image documentation. Transvaginal imaging was used for better evaluation of the fetus, adnexa, and/or cervix. Real-time duplex ultrasound scan of the arterial and venous flow of the ovaries with B-mode, color Doppler flow and spectral waveform analysis, Complete Duplex. Duplex exam was performed to evaluate for torsion and other vascular conditions. COMPARISON: No relevant recent comparison exams. FINDINGS: GESTATION: Gestation: A large mildly lobulated, irregular intrauterine gestational sac without evidence of pole or yolk sac. heart rate: NA Extra-embryonic membranes/Placenta: Not evaluated due to early gestation. Amniotic fluid: Not evaluated due to early gestation. BIOMETRY: Gestational age (AUA): 8 w 2 d Estimated due date (AUA): 03/21/2024 Mean sac diameter: 4.18 cm. MATERNAL: Right ovary/adnexa: Right ovary measures 2.88 cm x 1.55 cm x 1.5 cm. Right ovarian volume is 3.51 mL. Left ovary/adnexa: Left ovary measures 2.84 cm x 1.83 cm x 1.79 cm. Left ovarian volume is 4.87 mL. Doppler: Doppler examination of the ovaries with pulsed wave and color images was performed which demonstrate arterial/venous waveforms within normal limits. Intraperitoneal space: No free fluid in the pelvis. IMPRESSION: 1. Findings consistent with a nonviable /blighted ovum. 2. Normal ovaries demonstrating blood flow on Doppler. COMMENT: RECOMMENDED GUIDELINES FOR EARLY IUP FAILURE: Findings DIAGNOSTIC of intrauterine failure: MSD (mean sac diameter) of 25 mm and no embryo.
--- NOTE | 2023-08-12 19:18 | ED_ITS ---
Discharge Plan Disposition Patient Disposition: Home, Self-Care Prescriptions Prescriptions: No Action progesterone micronized [Prometrium] 100 mg capsule 100 mg vaginal HS Qty: 30 2RF Rx Instructions: insert vaginally at bedtime until 12weeks gestation Referrals Follow up/Referrals: Racheal Harvey DO [Staff Physician] - See instructions Rosibel Bellamy DO [Primary Care Provider] - See instructions Activity Restrictions/Add. Instructions Additional Instructions/Restrictions: As discussed the formal diagnosis is a of unknown location however the appearance of the ultrasound looks to be a blighted ovum. While I cannot definitively rule out an ectopic as discussed this appears to be an abnormal intrauterine as stated above. Please follow-up within the next 48 hours with [facility] return to the emergency department with any bleeding that is heavy as discussed. Referral has been made to Dr. Racheal Harvey you may call to make next available appointment. Clinical Impressions Clinical Impression: Vaginal bleeding during , , location unknown Discharge ED Provider: Goran Martinez General Adult HPI General Chief complaint: Vaginal Bleeding Stated complaint: poss miscarriage, approx 6 wks Time Seen by Provider: 08/12/23 19:00 Mode of Arrival: Ambulatory Source of Information: Patient Limitations: No Limitations Description of Symptoms (Recalled from ER Triage Doc. by RN): Patient is 6 weeks pregant and started bleeding this morning around 9am, worse this afternoon. History of Present Illness HPI narrative: Patient is a 23-year-old female who is a at 6 weeks gestational age by last menstrual period presenting today with vaginal bleeding. No significant abdominal cramping. No loss of any tissue. No history of any miscarriages in the past no diagnosed medical problems. Has not received RhoGAM in the past had no complications with her other pregnancies. Bleeding has been minimal. History of ectopic smoking etc. Related Data Previous Rx's Medication Instructions Recorded progesterone micronized 100 mg 100 mg vaginal HS #30 caps 07/27/23 capsule (Prometrium) Allergies Allergy/AdvReac Type Severity Reaction Status Date / Time No Known Allergies Allergy Verified 12/12/22 09:27 [facility] Disclaimer: The information contained in this section may have been updated after the patient was seen, as this information can be updated by other users. Medical History (Updated 08/12/23 @ 19:18 by Goran Martinez MD) ASCUS with positive high risk HPV Dental caries No significant past medical history Pilonidal cyst with abscess Surgical History (Updated 12/12/22 @ 09:28 by JAZMINE Brush) History of bladder surgery History of excision of pilonidal cyst Family History Other Alcoholism Asthma Cancer Diabetes Heart attack Hyperlipidemia Hypertension No significant family history Stroke Social History Smoking Status: Never smoker alcohol intake: never substance use type: denies use current occupational status: unemployed Travel in the last 8 weeks: None ROS Obtained: Yes All systems reviewed & no additional complaints except as documented Physical Exam General General appearance: alert Respiratory Respiratory exam: Present normal lung sounds bilaterally Cardiovascular Cardiovascular exam: Present regular rate Abdominal Exam Abdominal exam: Present soft; Absent distention or tenderness Neurological Exam Neurological exam: Present alert Medical Decision Making West Inquiry Pt receiving controlled substance: No Vital Signs: 08/12/23 18:54 Temperature 98.3 F Temperature Source Oral Pulse Rate [Radial] 90 Respiratory Rate 20 Blood Pressure [Left Arm] 121/87 Blood Pressure Mean [Left Arm] 98 Blood Pressure Source [Left Arm] Automatic Cuff Blood Pressure Position [Left Arm] Sitting 02 Sat by Pulse Oximetry 98 Oxygen Delivery Method Room Air Lab Data Lab results reviewed: Yes I reviewed the patient's lab results. Lab Results 08/12/23 19:20: WBC 8.8, RBC 4.86, Hgb 14.5, Hct 43.6, MCV 89.9, MCH 29.9, MCHC 33.3, RDW 13.9, Plt Count 315, MPV 7.7, Neut % (Auto) 68.0, Lymph % (Auto) 23.4, [place] % (Auto) 4.9, Eos % (Auto) 3.4, Baso % (Auto) 0.2, Neut # (Auto) 6.0, Lymph # (Auto) 2.1, [place] # (Auto) 0.4, Eos # (Auto) 0.3, Baso # (Auto) 0.0, Sodium 138, Potassium 3.6, Chloride 107, Carbon Dioxide 26, Anion Gap 8.6, BUN 9, Creatinine 0.70, Estimated Creat Clear 142, Estimated GFR 103, Est GFR ( Amer) 124, Glucose 92, Calcium 9.3, Total Bilirubin 0.4, AST 24, ALT 16, Alkaline Phosphatase 99, Total Protein 7.2, Albumin 4.4, Globulin 2.8, Albumin/Globulin Ratio 1.6, HCG, Quant 410 H, Blood Type O Positive, Antibody Screen Negative 08/12/23 19:20 08/12/23 19:20 Orders (Tests/Meds): ORDERS Category Date Time Status Type and Screen Stat BBK 08/12/23 19:20 Completed POCUS Point of Care (ER Only) Stat Exams 08/12/23 19:04 Ordered Beta HCG, Quant [HCG,Quantitative] Stat Lab 08/12/23 19:20 Completed CBC w/Auto Diff [Complete Blood Count Auto Diff] Stat Lab 08/12/23 19:20 Completed CMP [Comprehensive Metabolic Panel] Stat Lab 08/12/23 19:20 Completed US OB transvaginal Stat Ultrasound 08/12/23 19:17 Ordered Medical Decision Narrative: Is a 23-year-old female G4, P3 at 5 to 6 weeks gestational age by dates presenting today with vaginal bleeding. Differential includes normal intrauterine with abnormality such as subchorionic hemorrhaging, threatened , ectopic etc. I did a limited bedside transabdominal ultrasound and saw a gestational sac without a definitive pole or yolk sac. This could be risk control field representative of a pseudo gestational sac in the setting of ectopic will workup further of unknown location with a quantitative hCG and transvaginal ultrasound in addition we will get a type and screen and basic labs. Patient is very stable will reassess. Reassessment 842 patient remains very stable benign abdominal exams and serial assessment. I discussed the case with the ordnance engineering technician who did the transvaginal ultrasound and she sees a large cystic structure which appears to be a gestational sac with no other products of conception including no yolk sac or pole. This appears to be a probable blighted ovum there is also some subchorionic hemorrhaginh.overall this appears to be an abnormal intrauterine . However quantitative hCG is 400 which is less than the discriminatory zone, I cannot definitively rule out an ectopic believe this is unlikely but not definitively ruled out at this point. I have not ruled in an intrauterine . She is aware of all this I explained to her return precautions including severe worsening abdominal pain or persistent bleeding. Otherwise she will follow-up with her [facility] doctor for likely expectant management in the setting of a presumed blighted ovum. Procedures Miscellaneous Procedure Procedure Performed: Limited OB ultrasound Indication: Vaginal bleeding in Identified structures: [-Uterus -Left adnexa -Right adnexa -Pouch of James] Findings: There is what appears to be a gestational sac with no definitive pole or yolk sac Right adnexa: No free fluid Left adnexa: No free fluid Cul de sac: No free fluid Impression: Gestational sac without pole or yolk sac cannot definitively rule in an intrauterine Images were saved to permanent archive The study was technically adequate CPT Transabdominal: 04504-74 This study was performed by me, and I personally interpreted all images/videos. Based on my clinical judgement, these images were adequate and did necessitate further imaging. Critical Care Critical Care Time Critical Care Time: No
[2023-08-12 19:37] LABS: Basophils % 0.2 % (0.1-2.0); Eosinophils # 0.3 K/mm3 (0.0-0.4); Eosinophils % 3.4 % (0.1-12.0); Hematocrit 43.6 % (37.0-47.0); Hemoglobin 14.5 g/dL (12.2-16.2); Lymphocytes # 2.1 K/mm3 (0.7-4.5); Lymphocytes % 23.4 % (10-50); Mean Corpuscular HGB Conc 33.3 g/dL (31.8-35.4); Mean Corpuscular Hemoglobin 29.9 pg (27.0-31.2); Mean Corpuscular Volume 89.9 fl (81-99); Mean Platelet Volume 7.7 fl (7.4-10.4); Monocytes # 0.4 K/mm3 (0.1-1.0); Monocytes % 4.9 % (1.7-9.3); Platelet Count 315 K/mm3 (142-424); Red Blood Count 4.86 M/mm3 (4.20-5.40); Red Cell Distribution Width 13.9 % (11.5-17.5); White Blood Count 8.8 K/mm3 (4.8-10.8)
--- NOTE | 2023-08-12 19:40 | PC.NURSE ---
notified xray of transvaginal ultrasound order
[2023-08-12 19:42] LABS: Chloride 107 mmol/L (98-107); Sodium 138 mmol/L (136-145)
[2023-08-12 19:43] LABS: Potassium 3.6 mmoL/L (3.5-5.1)
[2023-08-12 19:45] LABS: Alanine Aminotransferase 16 U/L (12-78); Alkaline Phosphatase 99 U/L (38-126); Aspartate Amino Transferase 24 U/L (14-36); Bilirubin,Total 0.4 mg/dl (0.2-1.3); Blood Urea Nitrogen 9 mg/dl (7-17); Creatinine Clearance Estimated 142 mL/min (50-200); Estimated Glomerular Filt Rate 103 ml/min (>60); GFR (African American) 124 ML/MIN (>60)
[2023-08-12 19:46] LABS: Albumin Level 4.4 g/dl (3.5-5.0); Albumin/Globulin Ratio 1.6 (1.1-1.8); Anion Gap 8.6 mEq/L (5-15); Calcium 9.3 mg/dl (8.4-10.2); Carbon Dioxide 26 mmol/L (22.0-30.0); Globulin 2.8 g/dL (1.3-3.2); Glucose 92 mg/dl (74-100); Total Protein,Serum 7.2 g/dl (6.3-8.2)
[2023-08-12 20:02] LABS: HCG,Quantitative 410 mIU/ml (0-5.42)
[2023-08-12 20:48] VITALS: BP 116/75; PULSE 90; RESP 16; TEMP 36.8; O2SAT 99
== END 2023-08-12 20:49 | disposition home or self-care (01) ==
PROVIDERS: Emergency Provider Student in an Organized Health Care Education/Training Program; PCP Pediatrics
DX: O26.851 Spotting complicating pregnancy, first trimester (principal); Z3A.01 Less than 8 weeks gestation of pregnancy
CPT/HCPCS: 76817; 80053; 84702; 85025; 86850; 99285

== ENCOUNTER 2023-08-13 21:10 | Observation (INO) | payer MEDICAID, SELFPAY ==
[2023-08-13] VITALS (8 sets, daily range): BP systolic 85–112; BP diastolic 53–72; PULSE 72–89; RESP 18; TEMP 36.6–36.9; O2SAT 99–100; BMI 25.0
[2023-08-13] MEDS: LACTATED RINGERS 1000ML 1,000 ML 999 ML IV (21:38)
[2023-08-13 21:39] LABS: Basophils % 0.2 % (0.1-2.0); Eosinophils # 0.2 K/mm3 (0.0-0.4); Eosinophils % 1.6 % (0.1-12.0); Hematocrit 36.8 % (37.0-47.0); Hemoglobin 12.5 g/dL (12.2-16.2); Lymphocytes # 1.4 K/mm3 (0.7-4.5); Mean Corpuscular Hemoglobin 29.9 pg (27.0-31.2); Mean Corpuscular Volume 87.8 fl (81-99); Mean Platelet Volume 7.3 fl (7.4-10.4); Monocytes # 0.7 K/mm3 (0.1-1.0); Monocytes % 5.1 % (1.7-9.3); Neutrophils # 11.4 K/mm3 (1.8-7.8); Neutrophils % 83.2 % (37.0-80.0); Platelet Count 376 K/mm3 (142-424); Red Blood Count 4.18 M/mm3 (4.20-5.40); Red Cell Distribution Width 13.8 % (11.5-17.5); White Blood Count 13.7 K/mm3 (4.8-10.8)
[2023-08-13 21:42] LABS: Chloride 109 mmol/L (98-107); Sodium 138 mmol/L (136-145)
[2023-08-13 21:43] LABS: Potassium 3.8 mmoL/L (3.5-5.1)
[2023-08-13 21:45] LABS: Alanine Aminotransferase 18 U/L (12-78); Albumin Level 3.8 g/dl (3.5-5.0); Albumin/Globulin Ratio 1.5 (1.1-1.8); Alkaline Phosphatase 90 U/L (38-126); Anion Gap 6.8 mEq/L (5-15); Aspartate Amino Transferase 29 U/L (14-36); Bilirubin,Total 0.4 mg/dl (0.2-1.3); Blood Urea Nitrogen 13 mg/dl (7-17); Carbon Dioxide 26 mmol/L (22.0-30.0); Creatinine Clearance Estimated 142 mL/min (50-200); Estimated Glomerular Filt Rate 103 ml/min (>60); GFR (African American) 124 ML/MIN (>60); Globulin 2.6 g/dL (1.3-3.2); Total Protein,Serum 6.4 g/dl (6.3-8.2)
[2023-08-13 21:46] LABS: Glucose 102 mg/dl (74-100)
--- NOTE | 2023-08-13 21:58 | PC.NURSE ---
assisted pt with getting cleaned up and taken to bathroom. pt reports feeling more comfortable at this time.
[2023-08-13 22:01] LABS: Activated Partial Thrombo Time 21.7 seconds (22.8-30.6); Prothrombin Time 10.8 seconds (10.1-12.5)
[2023-08-13 22:12] LABS: HCG,Quantitative 219 mIU/ml (0-5.42)
--- NOTE | 2023-08-13 22:20 | ECG_ITS ---
APPROVED REPORT Exam: Resting ECG HR:79 bpm ECG Measurements Heart Rate 79 AXES WI 173 P -13 QRSd 76 QRS 64 QT 369 T 58 QTc 404 Conclusion SINUS RHYTHM NORMAL ECG UNCONFIRMED REPORT Electronically signed by : Mauricio Valencia MD 08/14/2023 20:07:34
--- NOTE | 2023-08-13 22:39 | PC.NURSE ---
Dr Hawk on phone with Dr Varghese
--- NOTE | 2023-08-13 22:54 | ED_ITS ---
Discharge Plan Disposition Patient Disposition: Admitted Clinical Impressions Clinical Impression: Miscarriage Discharge ED Provider: Rocío Hawk General Adult HPI General Chief complaint: Vaginal Bleeding Stated complaint: abd pain vaginal bleeding antepartum 8wks Time Seen by Provider: 08/13/23 21:37 Mode of Arrival: Wheelchair Source of Information: Patient Limitations: No Limitations Description of Symptoms (Recalled from ER Triage Doc. by RN): patient to ED via wheelchair. C/O of heavy vaginal bleeding since 1600 today. Patient reports shes bleeding through a maxi pad miguel 10 minutes. Copious amounts of blood present in wheelchair and on stretcher upon arrival. Reports that shes constantly dizzy when ambulating and repositioning. History of Present Illness HPI narrative: Patient is a 23-year-old G4, P3 with previous medical history of visit to this emergency department yesterday for miscarriage. At that time patient was found to have an intrauterine blighted ovum and no extrauterine . Since that visit patient has had progressively worsening vaginal bleeding that now is soaking through her pads and through her clothes. She has started to feel lightheaded and short of breath every time she stands or walks. For this reason she presented to the emergency department. Related Data Previous Rx's Medication Instructions Recorded progesterone micronized 100 mg 100 mg vaginal HS #30 caps 07/27/23 capsule (Prometrium) Allergies Allergy/AdvReac Type Severity Reaction Status Date / Time No Known Allergies Allergy Verified 12/12/22 09:27 [facility] Disclaimer: The information contained in this section may have been updated after the patient was seen, as this information can be updated by other users. Medical History ASCUS with positive high risk HPV Dental caries No significant past medical history Pilonidal cyst with abscess Surgical History History of bladder surgery History of excision of pilonidal cyst Family History Other Alcoholism Asthma Cancer Diabetes Heart attack Hyperlipidemia Hypertension No significant family history Stroke Social History Smoking Status: Smoker, status unknown tobacco type: e-cigarettes alcohol intake: never substance use type: denies use current occupational status: employed and unemployed Travel in the last 8 weeks: None ROS Obtained: Yes All systems reviewed & no additional complaints except as documented Physical Exam General General appearance: alert and in no apparent distress Head Head exam: atraumatic, normocephalic and normal inspection Eye Eye exam: Present normal appearance, PERRL and EOMI ENT ENT exam: Present normal exam, normal oropharynx, mucous membranes moist, TM's normal bilaterally and normal external ear exam Neck Neck exam: Present normal inspection, full ROM and trachea midline; Absent meningismus or lymphadenopathy Chest Chest inspection: Present normal inspection and symmetric chest wall rise; Absent tenderness Respiratory Respiratory exam: Present normal lung sounds bilaterally; Absent respiratory distress Cardiovascular Cardiovascular exam: Present regular rate and normal rhythm; Absent JVD Abdominal Exam Abdominal exam: Present soft and normal bowel sounds; Absent distention, tenderness or guarding External exam: Present other (Slow vaginal bleeding. No signs of arterial bleeding. Internal pelvic exam deferred) Extremities Exam Extremities exam: Present normal inspection, full ROM and normal capillary refill; Absent calf tenderness Back Exam Back exam: Present normal inspection; Absent tenderness Neurological Exam Neurological exam: Present alert and oriented X3 Psychiatric Psychiatric exam: Present normal affect and normal mood Skin Skin exam: Present warm, dry, intact and normal color Lymphatic Lymphatic Findings: no adenopathy Medical Decision Making Medical Records Medical records reviewed: Yes I reviewed the patient's medical records. MR Comment: Ultrasound yesterday showed blighted ovum and no ectopic West Inquiry Pt receiving controlled substance: No [place] was queried for this patient: No Vital Signs: 08/13/23 21:12 08/13/23 22:04 08/13/23 22:11 Temperature 98.4 F Temperature Source Oral Pulse Rate 85 87 Pulse Rate [Right] 89 Respiratory Rate 18 Blood Pressure 85/53 L 97/61 L Blood Pressure [Right Arm] 110/59 L Blood Pressure Mean 62 68 Blood Pressure Mean [Right Arm] 76 Blood Pressure Source [Right Arm] Automatic Cuff Blood Pressure Position [Right Arm] Sitting 02 Sat by Pulse Oximetry 100 100 Oxygen Delivery Method Room Air 08/13/23 22:20 08/13/23 22:40 08/13/23 22:50 Temperature Temperature Source Pulse Rate 80 72 84 Pulse Rate [Right] Respiratory Rate Blood Pressure 103/63 L 109/55 L 105/63 L Blood Pressure [Right Arm] Blood Pressure Mean 68 65 73 Blood Pressure Mean [Right Arm] Blood Pressure Source [Right Arm] Blood Pressure Position [Right Arm] 02 Sat by Pulse Oximetry 100 100 100 Oxygen Delivery Method 08/13/23 23:36 08/13/23 23:26 08/13/23 23:26 Temperature 98.4 F 97.9 F Temperature Source Oral Pulse Rate 81 Pulse Rate [Right] 86 Respiratory Rate 18 18 Blood Pressure 104/72 L Blood Pressure [Right Arm] 112/55 L Blood Pressure Mean Blood Pressure Mean [Right Arm] 74 Blood Pressure Source [Right Arm] Automatic Cuff Blood Pressure Position [Right Arm] Supine 02 Sat by Pulse Oximetry 99 99 Oxygen Delivery Method Room Air Room Air Lab Data Lab Results 08/13/23 21:20: WBC 13.7 H D, RBC 4.18 L, Hgb 12.5, Hct 36.8 L, MCV 87.8, MCH 29.9, MCHC 34.0, RDW 13.8, Plt Count 376, MPV 7.3 L, Neut % (Auto) 83.2 H, Lymph % (Auto) 10.0, [place] % (Auto) 5.1, Eos % (Auto) 1.6, Baso % (Auto) 0.2, Neut # (Auto) 11.4 H, Lymph # (Auto) 1.4, [place] # (Auto) 0.7, Eos # (Auto) 0.2, Baso # (Auto) 0.0, PT 10.8, INR 1.00, APTT 21.7 L, Sodium 138, Potassium 3.8, Chloride 109 H, Carbon Dioxide 26, Anion Gap 6.8, BUN 13 D, Creatinine 0.70, Estimated Creat Clear 142, Estimated GFR 103, Est GFR ( Amer) 124, Glucose 102 H, Calcium 9.0, Total Bilirubin 0.4, AST 29, ALT 18, Alkaline Phosphatase 90, Total Protein 6.4, Albumin 3.8 D, Globulin 2.6, Albumin/Globulin Ratio 1.5, HCG, Quant 219 H 08/13/23 21:20 08/13/23 21:20 Orders (Tests/Meds): ED MEDICATIONS Generic Name Dose Route Start Last Admin Trade Name Freq PRN Reason Stop Dose Admin Acetaminophen 1,000 mg 08/13/23 23:18 08/13/23 23:40 Acetaminophen 500mg Tab PO 09/12/23 23:17 1,000 mg Q6HP PRN Administration Mild to Moderate Pain (1-6) Lactated Ringer's 1,000 mls @ 125 mls/hr 08/13/23 23:30 08/13/23 23:40 Lactated Ringer's 1000 Ml Bag IV 09/12/23 23:29 125 mls/hr .Q8H KAMRAN Administration Ibuprofen 800 mg 08/13/23 23:18 Ibuprofen 400 Mg Tablet PO 09/12/23 23:17 Q8HP PRN Mild to Moderate Pain (1-6) Sodium Chloride 10 ml 08/13/23 23:07 Sodium Chloride 0.9% 10ml Flush Syringe IV 09/12/23 23:06 NEEDED PRN Maintain IV Site Discontinued Medications Generic Name Dose Route Start Last Admin Trade Name Freq PRN Reason Stop Dose Admin Acetaminophen 650 mg 08/13/23 23:07 Acetaminophen 325mg Tab PO 09/12/23 23:06 Q6HP PRN Fever or Mild Pain (1-3) Lactated Ringer's 1,000 mls @ 999 mls/hr 08/13/23 21:31 08/13/23 21:38 Lactated Ringer's 1000 Ml Bag IV 08/13/23 22:31 999 mls/hr .Q1H1M ONE Administration Lactated Ringer's 1,000 mls @ 50 mls/hr 08/13/23 23:15 08/13/23 23:25 Lactated Ringer's 1000 Ml Bag IV 09/12/23 23:14 Not Given .Q20H KAMRAN ORDERS Category Date Time Status Beta HCG, Quant [HCG,Quantitative] Stat Lab 08/13/23 21:20 Completed CBC [Complete Blood Count Auto Diff] Stat Lab 08/13/23 21:20 Completed CMP [Comprehensive Metabolic Panel] Stat Lab 08/13/23 21:20 Completed PT/PTT Stat Lab 08/13/23 21:20 Completed ECG Data Tracing #1: ECG initial impression date: 08/13/23 ECG initial impression time: 22:20 ECG normal with no acute: arrhythmias, ischemia, conduction abnormalities, chamber hypertrophy Normal Sinus Rhythm: Yes Medical Decision Narrative: Initially on arrival patient was transiently hypotensive but this improved with 1 L of LR. Consider multiple causes of patient's presentation including ruptured ectopic but performed [id number] bedside ultrasound which I independently reviewed and interpreted that showed no intra-abdominal free fluid. Only significant for complex cystic mass of the uterus similar to what was described yesterday on the formal pelvic ultrasound that is concerning for blighted ovum. Also consider that she may have anemia as a result of this bleeding so obtained laboratory evaluation which was significant for hemoglobin that had decreased from 14.5 yesterday to 12.5 today. Obtain type and screen and consulted RISK ANALYST given the symptomatology and her transient hypotension. They agreed to admit patient. She was admitted while normotensive and receiving fluids. Critical Care Critical Care Time Critical Care Time: No
--- NOTE | 2023-08-13 22:57 | PC.NURSE ---
Called warehouse shipping associate for OB admission
--- NOTE | 2023-08-13 23:31 | PC.NURSE ---
Patient arrived to unit at 2324 via wheelchair from ED. Patient accompanied by SRNA and visitor.
[2023-08-13] MEDS: LACTATED RINGERS 1000ML 1,000 ML 125 ML IV (23:40)
[2023-08-13] MEDS: ACETAMINOPHEN 500MG TAB 1000 MG PO (23:40)
[2023-08-14 00:39] VITALS: BP 96/53; PULSE 85; RESP 18
[2023-08-14 01:39] VITALS: BP 90/47; PULSE 75
[2023-08-14 02:39] VITALS: BP 92/51; PULSE 69
[2023-08-14 04:00] VITALS: BP 109/58; PULSE 85; RESP 18; TEMP 36.6; O2SAT 99
--- NOTE | 2023-08-14 04:35 | PC.NURSE ---
Pt laying in bed comfortably, vitals have been stable throughout the night. QBL for the shift was 152, with a pad count of two. pt has rested through out the night, pt denies pain on reassessment, lung sounds clear throughout, bowel sounds present, pt denies abdominal tenderness, LR running at 125 ml/hr in 20g in RAC. pt denies any needs at this time.
[2023-08-14 07:19] LABS: Basophils % 0.2 % (0.1-2.0); Eosinophils # 0.1 K/mm3 (0.0-0.4); Eosinophils % 1.3 % (0.1-12.0); Hematocrit 28.7 % (37.0-47.0); Lymphocytes % 23.4 % (10-50); Mean Corpuscular HGB Conc 33.5 g/dL (31.8-35.4); Mean Corpuscular Hemoglobin 29.3 pg (27.0-31.2); Mean Corpuscular Volume 87.6 fl (81-99); Mean Platelet Volume 7.9 fl (7.4-10.4); Monocytes # 0.5 K/mm3 (0.1-1.0); Monocytes % 5.5 % (1.7-9.3); Neutrophils # 5.8 K/mm3 (1.8-7.8); Neutrophils % 69.6 % (37.0-80.0); Platelet Count 291 K/mm3 (142-424); Red Blood Count 3.28 M/mm3 (4.20-5.40); White Blood Count 8.3 K/mm3 (4.8-10.8)
--- NOTE | 2023-08-14 07:42 | HMH.PHAINT1 ---
Pharmacy Intervention Comments: MEDICATION RECONCILIATION COMPLETED ON PATIENT USING EXTERNAL FILL HISTORY FROM PHARMACY. -PEGGY MOELLER, ARANZAD
[2023-08-14 07:44] LABS: Hemoglobin 9.6 g/dL (12.2-16.2)
[2023-08-14 07:50] VITALS: BP 107/55; PULSE 80; RESP 18; TEMP 36.7; O2SAT 99
[2023-08-14 07:53] VITALS: O2SAT 99
--- NOTE | 2023-08-14 09:48 | PC.NURSE ---
called to check on pt's status. updated. V/U. States will put in an order for discharge later.
--- NOTE | 2023-08-14 10:42 | PC.NURSE ---
Pt reports bleeding only a small amt at this time.
--- NOTE | 2023-08-14 11:47 | EXP.HPDC ---
General Admission date:: 08/13/23 *Admission Date: 08/14/23 *Chief complaint: Vaginal bleeding *History of present illness: Dominguez Stringer is a 23-year-old who presented to the ED and was diagnosed with a blighted ovum and miscarriage. Pt reports she had significant bleeding and was admitted overnight. When i saw her this morning her bleeding had significantly improved. We continue to monitor for 3 more hours and her bleeding continued to be scant without any abdominal cramping. With shared decision making we elected to discharge home and she will follow-up with me in the office tomorrow afternoon. She understood that should bleeding significantly pick that she should call the office or return to the ED for evaluation. Her blood type is O+, antibody negative PFSH PFS Disclaimer: The information contained in this section may have been updated after the patient was seen, as this information can be updated by other users. Medical History ASCUS with positive high risk HPV Dental caries No significant past medical history Pilonidal cyst with abscess Surgical History History of bladder surgery History of excision of pilonidal cyst Family History Other Alcoholism Asthma Cancer Diabetes Heart attack Hyperlipidemia Hypertension No significant family history Stroke Social History Smoking Status: Smoker, status unknown tobacco type: e-cigarettes alcohol intake: never substance use type: denies use current occupational status: employed and unemployed Travel in the last 8 weeks: None Review of Systems Review of Systems Review of systems (narrative): Review of Systems Constitutional: Denies fever, chills, and sweats Eyes: Denies vision change/ pain Respiratory: Denies cough and shortness of breath Cardiovascular: Denies chest pain and lightheadedness Gastrointestinal: Denies abdominal pain. Denies nausea, vomiting. Genitourinary: Denies dysuria and incontinence. Denies vaginal bleeding at this time Musculoskeletal: Denies shoulder pain and back pain Neurological: Denies change in speech or headaches Exam Data for Last 24 hours Vital signs and Labs for Last 24 Hours: Temp Pulse Resp BP Pulse Ox O2 Del Method 98.1 F 80 18 107/55 L 99 Room Air 08/14/23 07:50 08/14/23 07:50 08/14/23 07:50 08/14/23 07:50 08/14/23 07:53 08/14/23 10:00 Laboratory Results - last 24 hr 08/13/23 21:20: WBC 13.7 H D, RBC 4.18 L, Hgb 12.5, Hct 36.8 L, MCV 87.8, MCH 29.9, MCHC 34.0, RDW 13.8, Plt Count 376, MPV 7.3 L, Neut % (Auto) 83.2 H, Lymph % (Auto) 10.0, [place] % (Auto) 5.1, Eos % (Auto) 1.6, Baso % (Auto) 0.2, Neut # (Auto) 11.4 H, Lymph # (Auto) 1.4, [place] # (Auto) 0.7, Eos # (Auto) 0.2, Baso # (Auto) 0.0, PT 10.8, INR 1.00, APTT 21.7 L, Sodium 138, Potassium 3.8, Chloride 109 H, Carbon Dioxide 26, Anion Gap 6.8, BUN 13 D, Creatinine 0.70, Estimated Creat Clear 142, Estimated GFR 103, Est GFR ( Amer) 124, Glucose 102 H, Calcium 9.0, Total Bilirubin 0.4, AST 29, ALT 18, Alkaline Phosphatase 90, Total Protein 6.4, Albumin 3.8 D, Globulin 2.6, Albumin/Globulin Ratio 1.5, HCG, Quant 219 H 08/14/23 07:02: WBC 8.3 D, RBC 3.28 L, Hgb 9.6 L D, Hct 28.7 L, MCV 87.6, MCH 29.3, MCHC 33.5, RDW 14.0, Plt Count 291, MPV 7.9, Neut % (Auto) 69.6, Lymph % (Auto) 23.4, [place] % (Auto) 5.5, Eos % (Auto) 1.3, Baso % (Auto) 0.2, Neut # (Auto) 5.8, Lymph # (Auto) 2.0, [place] # (Auto) 0.5, Eos # (Auto) 0.1, Baso # (Auto) 0.0 I & O for Last 24 hours: Intake & Output 08/11/23 08/12/23 08/13/23 08/14/23 23:59 23:59 23:59 23:59 Output Total 400 / 400 Balance -400 / -400 Weight 160 lb Narrative: General: patient is alert oriented in no acute distress and responds appropriately to questions. HEENT: NCAT, EOMI, moist mucous membranes, neck supple with full ROM Cardiovascular: RRR +S1/S2, no murmurs or rubs Pulmonary: Clear to auscultation bilaterally, nonlabored breathing, symmetric chest rise Abdominal: No guarding, rebound, or tenderness noted. Extremities: No edema, no tenderness or cyanosis noted Skin: Normal turgor, intact, warm. Negative for erythema, pallor, petechia, or lesions Neurologic: Negative for sensory or motor deficit Psychiatric: Normal affect, normal thought process, good judgment and insight, no depression or anxious mood appreciated. *Routine HEENT Exam Head: Present normocephalic and atraumatic Eye: Present EOMI, PERRL and normal accommodation; Absent conjunctival icterus, scleral injection, nystagmus or exophthalmos ENT: Present mucous membranes moist *Routine Respiratory Exam Respiratory: Present CTA bilaterally, normal respiratory effort, able to speak in complete sentences and symmetric chest movement; Absent accessory muscle use, decreased breath sounds, rales, respiratory distress, wheezes, distant breath sounds or diminished air movement *Routine Cardiovascular Exam Cardiovascular: Present RRR, Normal S1 and Normal S2; Absent murmur or gallop *Routine Abdominal Exam Abdominal: Present soft and normoactive bowel sounds; Absent tenderness, distended, rebound or guarding *Routine Rectal Exam Rectal:: deferred *Routine Genitalia Exam Genitalia:: normal female Meds Home Medications and Allergies Home Medications Medication Instructions Recorded Confirmed Type acetaminophen 500 mg tablet 1,000 mg PO Q6HP PRN Mild To 08/14/23 Rx Moderate Pain (1-6) #30 tabs ibuprofen 400 mg tablet 800 mg PO Q8HP Mild To Moderate 08/14/23 Rx Pain (1-6) #30 tabs New Prescriptions to Start Prescriptions: acetaminophen Racheal Harvey ibuprofen Racheal Harvey Allergies Allergy/AdvReac Type Severity Reaction Status Date / Time No Known Allergies Allergy Verified 12/12/22 09:27 Hospital Course Hospital Course Hospital Course: Dominguez Stringer is a 23-year-old who presented to the ED and was diagnosed with a blighted ovum and miscarriage. Pt reports she had significant bleeding and was admitted overnight. When i saw her this morning her bleeding had significantly improved. We continued to monitor for 3 more hours and her bleeding continued to be scant without any abdominal cramping. With shared decision making we elected to discharge home and she will follow-up with me in the office tomorrow afternoon. She understood that should bleeding significantly pick that she should call the office or return to the ED for evaluation. Her blood type is O+, antibody negative Results Data Completed and Pending Labs on day of discharge: Labs from last 24 hours 08/14/23 08/13/23 07:02 21:20 WBC 8.3 D 13.7 H D RBC 3.28 L 4.18 L Hgb 9.6 L D 12.5 Hct 28.7 L 36.8 L MCV 87.6 87.8 MCH 29.3 29.9 MCHC 33.5 34.0 RDW 14.0 13.8 Plt Count 291 376 MPV 7.9 7.3 L Neut % (Auto) 69.6 83.2 H Lymph % (Auto) 23.4 10.0 [place] % (Auto) 5.5 5.1 Eos % (Auto) 1.3 1.6 Baso % (Auto) 0.2 0.2 Neut # (Auto) 5.8 11.4 H Lymph # (Auto) 2.0 1.4 [place] # (Auto) 0.5 0.7 Eos # (Auto) 0.1 0.2 Baso # (Auto) 0.0 0.0 PT 10.8 INR 1.00 APTT 21.7 L Sodium 138 Potassium 3.8 Chloride 109 H Carbon Dioxide 26 Anion Gap 6.8 BUN 13 D Creatinine 0.70 Estimated Creat Clear 142 Estimated GFR 103 Est GFR ( Amer) 124 Glucose 102 H Calcium 9.0 Total Bilirubin 0.4 AST 29 ALT 18 Alkaline Phosphatase 90 Total Protein 6.4 Albumin 3.8 D Globulin 2.6 Albumin/Globulin Ratio 1.5 HCG, Quant 219 H DS: Diagnosis Discharge Diagnosis (1) Miscarriage: Status: Acute Code(s): O03.9 - Complete or unspecified spontaneous without complication Problem details: Patient expressed desire to avoid surgery if at all possible. When discussing with the patient her symptoms I believe that she passed all uterine contents overnight. Her bleeding this morning is scant. Appropriate for discharge. Reviewed discharge options with the patient in detail and she voiced understanding. She did have a hemoglobin drop from 14.5-->12.5-->9.6. Some of this may be dilutional secondary to significant amount of IV fluids. She will be discharged home with p.o. iron. She was asymptomatic on exam this morning. Not tachycardic (2) Anemia: Status: Acute Code(s): D64.9 - Anemia, unspecified Qualifiers: Other causes of anemia: acute posthemorrhagic Discharge Plan Disposition Patient Disposition: Home, Self-Care Condition: Good Follow up Plan Follow up with: Racheal Harvey DO [Staff Physician] - 08/15/23 2:15 pm (Please have the patient scheduled to see me tomorrow afternoon in [place]) Prescriptions/Medication Reconciliation: New acetaminophen 500 mg Tablet 1,000 mg PO Q6HP PRN (Reason: Mild To Moderate Pain (1-6)) Qty: 30 0RF ibuprofen 400 mg Tablet 800 mg PO Q8HP Qty: 30 3RF Discontinued progesterone micronized [Prometrium] 100 mg capsule 100 mg vaginal HS Qty: 30 2RF Rx Instructions: insert vaginally at bedtime until 12weeks gestation Problem Reconciliation Problems Reviewed?: Yes Patient Discharge Instructions ACTIVITY: Continue current activity DIET: regular diet Additional Instructions: Medications: I have sent you home with a prescription for Tylenol and ibuprofen. You can take Tylenol 500 mg to 1000 mg 4 times a day. You can take 800 mg of ibuprofen every 8 hours. Please call the office or return to the ER if you have any of the followin. bleeding more than 1 pad an hour for 2 hours 2. dizziness or lightheadedness such that you lose consciousness Questions or concerns: It is my privilege to be your doctor. Please let me know if you have other questions or concerns. Racheal Harvey DO [facility] Specialist [place], [place] [address] Patient Instructions: Miscarriage, DI for Miscarriage Providers Primary Care Provider: Provider,Referral Admit Provider: Shanel Rodas Attending Provider: Shanel Rodas
== END 2023-08-14 12:20 | disposition home or self-care (01) ==
LOC: ER 22:35 → OB 23:04
PROVIDERS: Admitting Provider Obstetrics & Gynecology; Emergency Provider Emergency Medicine; Visit Provider Obstetrics & Gynecology
DX: O03.9 Complete or unspecified spontaneous abortion without complication (principal); F17.290 Nicotine dependence, other tobacco product, uncomplicated; D64.9 Anemia, unspecified
CPT/HCPCS: 36415; 80053; 84702; 85025; 85610; 85730; 93005; G0378

== ENCOUNTER 2023-08-16 11:48 | Outpatient (CLI) | payer MEDICAID, SELFPAY ==
[2023-08-16 12:03] LABS: Basophils % 0.2 % (0.1-2.0); Eosinophils # 0.2 K/mm3 (0.0-0.4); Eosinophils % 3.2 % (0.1-12.0); Hemoglobin 9.6 g/dL (12.2-16.2); Lymphocytes # 1.8 K/mm3 (0.7-4.5); Lymphocytes % 27.8 % (10-50); Mean Corpuscular HGB Conc 31.9 g/dL (31.8-35.4); Mean Corpuscular Hemoglobin 29.6 pg (27.0-31.2); Mean Corpuscular Volume 92.8 fl (81-99); Mean Platelet Volume 8.8 fl (7.4-10.4); Monocytes # 0.4 K/mm3 (0.1-1.0); Monocytes % 6.7 % (1.7-9.3); Neutrophils # 3.9 K/mm3 (1.8-7.8); Neutrophils % 62.1 % (37.0-80.0); Platelet Count 342 K/mm3 (142-424); Red Blood Count 3.24 M/mm3 (4.20-5.40); White Blood Count 6.3 K/mm3 (4.8-10.8)
[2023-08-16 12:55] LABS: HCG,Quantitative 23 mIU/ml (0-5.42)
== END 2023-08-16 23:59 ==
LOC: LAB 11:49
PROVIDERS: Visit Provider Obstetrics & Gynecology
DX: D64.9 Anemia, unspecified (principal); O03.9 Complete or unspecified spontaneous abortion without complication
CPT/HCPCS: 36415; 84702; 85025

== ENCOUNTER 2024-06-26 16:47 | Outpatient (CLI) | payer MEDICAID, SELFPAY ==
[2024-06-26 18:35] LABS: HCG,Quantitative 90749 mIU/ml (0-5.42)
[2024-06-27 08:14] LABS: Progesterone 12.4 ng/mL (.)
== END 2024-06-26 23:59 | disposition home or self-care (01) ==
LOC: LAB 16:48
PROVIDERS: Visit Provider Obstetrics & Gynecology
DX: N92.6 Irregular menstruation, unspecified (principal)
CPT/HCPCS: 36415; 84144; 84702

== ENCOUNTER 2024-07-29 16:12 | Outpatient (CLI) | payer MEDICAID, SELFPAY | END 2024-07-29 23:59 | disposition home or self-care (01) | LOC: LAB.DROPOF 16:13 | PROVIDERS: PCP Obstetrics & Gynecology; Visit Provider Obstetrics & Gynecology | DX: Z34.01 Encounter for supervision of normal first pregnancy, first trimester (principal) | CPT/HCPCS: 87086 ==

== ENCOUNTER 2024-08-28 10:42 | Outpatient (CLI) | payer MEDICAID, SELFPAY ==
[2024-08-28 12:43] LABS: HIV Combo NEGATIVE (Negative)
[2024-08-28 12:49] LABS: Red Cell Distribution Width 14.9 % (11.5-17.5)
[2024-08-28 12:50] LABS: Hepatitis C Ab Qual. W/ RFX NEGATIVE (Negative)
[2024-08-28 12:55] LABS: Basophils % 0.2 % (0.1-2.0); Eosinophils # 0.3 K/mm3 (0.0-0.4); Eosinophils % 3.3 % (0.1-12.0); Hematocrit 40.4 % (37.0-47.0); Lymphocytes # 1.8 K/mm3 (0.7-4.5); Lymphocytes % 18.2 % (10-50); Mean Corpuscular HGB Conc 32.2 g/dL (31.8-35.4); Mean Corpuscular Volume 87.1 fl (81-99); Mean Platelet Volume 9.1 fl (7.4-10.4); Monocytes # 0.6 K/mm3 (0.1-1.0); Neutrophils # 6.9 K/mm3 (1.8-7.8); Neutrophils % 71.8 % (37.0-80.0); Platelet Count 308 K/mm3 (142-424); Red Blood Count 4.64 M/mm3 (4.20-5.40); White Blood Count 9.7 K/mm3 (4.8-10.8)
[2024-08-28 15:17] LABS: RPR W/RFX Titers Nonreactive (Nonreactive)
[2024-08-29 08:19] LABS: Hepatitis B Surface Antigen Negative (Negative); Rubella Antibodies, IgG 2.71 index (Immune >0.99)
== END 2024-08-28 23:59 | disposition home or self-care (01) ==
LOC: LAB 10:43
PROVIDERS: Visit Provider Obstetrics & Gynecology
DX: Z34.02 Encounter for supervision of normal first pregnancy, second trimester (principal); Z3A.17 17 weeks gestation of pregnancy
CPT/HCPCS: 36415; 85025; 86592; 86762; 86803; 86850; 87340; 87389

== ENCOUNTER 2024-09-18 09:08 | Outpatient (CLI) | payer MEDICAID, SELFPAY ==
--- NOTE | 2024-09-18 09:08 | US_ITS ---
PROCEDURE: US OB /MATERNAL DETAIL CLINICAL INDICATION: 20 week Anatomy Scan-Complete COMPARISON: No exams were available for comparison FINDINGS: Transabdominal sonographic images of the pelvis were obtained. From her established due date she is 20 weeks 1 day. Single viable intrauterine gestation. Cephalic position. Placenta: Anterior placenta grade 1. There are multiple placental lakes. There is an average amount of fluid. The cervix appears satisfactory. Closed and measuring 3.19 cm in length. Complete survey performed and was unremarkable on the submitted images as in PACS. No discrete anomalies identified on survey imaging by technologist. Active fetus. Three-vessel cord with satisfactory umbilical cord insertion. 4- chamber heart noted. S[place], aortic arch, LVOT, RVOT, three-vessel view appear normal. The four-chamber view was not optimally visualized. Survey of brain & ventricles Unremarkable. Cerebellum, thalamus, choroid plexus, cisterna magna appear normal. Face and neck survey unremarkable. Profile, nasion, lips and nose appeared normal. Diaphragm and chest views unremarkable. Abdomen: Both kidneys noted and unremarkable. Stomach and bladder noted and satisfactory. Spine: Survey of the spine satisfactory with no anomalies identified nor imaged. Cervical, thoracic, lower spine appear normal. Both arms and legs noted. Amniotic Fluid: Adequate. MVP 3.59 cm Measurements: Average ultrasound age 20weeks 1day. Estimated due date by ultrasound age 0802/04/2025. Estimated weight 320g BPD = 20weeks 2days HC = 20weeks 0 days AC = 20weeks 0 days FL = 20weeks 0 days Growth Percentile= 32 Heart Rate = 150bpm Cerebellum = 20weeks 0 days Humerus = 19weeks 6days HC/AC is 1.19 FL/BPD is 0.68 FL/AC is 0.22 IMPRESSION: 1. Viable fetus in the cephalic presentation with an anterior placenta grade 1. There are multiple small placental lakes. 2. The fluid is within normal limits with an MVP 3.59 cm. 3. Four-chamber cardiac view was not well visualized today and suggest repeat scan in 2-3 weeks. 4. The rest of the anatomical scan appears normal. 5. biometry is consistent with the dates. Dictated by: Ivan Bentley MD 09/18/2024 16:47 Ivan Bentley MD in [place] 09/18/2024 16:47
== END 2024-09-18 23:59 | disposition home or self-care (01) ==
LOC: RAD 09:08
PROVIDERS: PCP Obstetrics & Gynecology; Visit Provider Obstetrics & Gynecology
DX: Z36.3 Encounter for antenatal screening for malformations (principal); O03.9 Complete or unspecified spontaneous abortion without complication; Z3A.20 20 weeks gestation of pregnancy
CPT/HCPCS: 76811

== ENCOUNTER 2024-11-10 10:49 | Outpatient (CLI) | payer MEDICAID, SELFPAY ==
--- NOTE | 2024-11-10 10:30 | US_ITS ---
PROCEDURE: US OB FOLLOW UP CLINICAL INDICATION: 2-3 weeks, repeat anatomy and cardiac views COMPARISON: US US OB /MATERNAL DETAIL from 09/18/2024 FINDINGS: Transabdominal sonographic images of the pelvis were obtained. The following parameters are obtained: From her established due date she is 27weeks 5days Viable fetus in the cephalic presentation with an anterior placenta grade 1. There continues be several small placental lakes. The cervix measures 4.04 cm heart rate: 136bpm bpm. Amniotic fluid: MVP 6.56 cm No obvious anomalies evident. profile seen, stomach, bladder, kidneys, three-vessel cord, four chamber heart appear normal. There is mild unilateral renal pelvis dilation measuring 4.5 mm. cardiac scan: Three-vessel view, LVOT, four-chamber heart appear normal. IMPRESSION: 1. Viable fetus in the cephalic presentation with an anterior placenta grade 1. 2. The fluid is within normal limits with an MVP 6.56 cm. 3. Cardiac scan today appears normal with the four-chamber view appearing normal today. 4. There is mild unilateral renal pelvis dilation measuring 4.5 mm. 5. The rest of the limited anatomical scan appears normal. Dictated by: Ivna Bentley MD 11/10/2024 12:13 Ivan Bentley MD in [place] 11/10/2024 12:13
== END 2024-11-10 23:59 | disposition home or self-care (01) ==
LOC: RAD 10:50
PROVIDERS: Visit Provider Obstetrics & Gynecology
DX: O28.3 Abnormal ultrasonic finding on antenatal screening of mother (principal); Z3A.27 27 weeks gestation of pregnancy
CPT/HCPCS: 76816

== ENCOUNTER 2025-01-07 12:08 | Outpatient (CLI) | payer MEDICAID, SELFPAY ==
--- NOTE | 2025-01-07 12:00 | US_ITS ---
PROCEDURE: US OB FOLLOW UP CLINICAL INDICATION: needs to check growth COMPARISON: US US OB TRANSVAGINAL from 08/12/2023 US US OB /MATERNAL DETAIL from 09/18/2024 US US OB FOLLOW UP from 11/10/2024 FINDINGS: Transabdominal sonographic images of the pelvis were obtained. The following parameters are obtained: From her established due date she is 36weeks 0 days Viable fetus in the cephalic presentation with an anterior placenta grade 2. The cervix measures 2.84 cm heart rate: 158bpm bpm. Average ultrasound age 37 weeks 5 days Estimated weight 3223 grams, 7 lb 2 oz BPD: 37weeks 4days, 91 percentile HC: 38weeks 3days, 76 percentile AC: 37weeks 4days, 91 percentile FL: 37weeks 2days, 75 percent HC/AC: 1 FL/BPD: 0.79 FL/AC: 0.22 Growth percentile: 87 Amniotic fluid index: 14.96cm, MVP 4.20 cm No obvious anomalies evident. profile seen, stomach, bladder, kidneys, three-vessel cord, four chamber heart appear normal. There is mild bilateral renal pelvis dilation measuring 5.2 mm and 6.7 mm. IMPRESSION: 1. Viable fetus in the cephalic presentation with an anterior placenta grade 2. 2. Fluid is within normal limits with an amniotic fluid index 14.96 cm, MVP 4.20 cm. 3. There has been good interval growth with the fetus currently 87th percentile. 4. There is mild bilateral renal pelvis dilation. 5. Limited anatomical scan appears normal. Dictated by: Ivan Bentley MD 01/07/2025 14:04 Ivan Bentley MD in OV 01/07/2025 14:04
--- OUTSIDE RECORDS SUMMARY | 2025-01-07 12:11 | XMS_ITS | Clinical Summary ---
Author Organization [facility] Address [address] [place] [address] Phone Care Team Providers Care Certified Nurse Midwife Name Role Phone Temo Marie MD Primary Care Provider [phone] Allergies No known active allergies Medications acetaminophen (TYLENOL) 500 mg Oral Tablet Take 2 Tabs by mouth every 6 hours as needed for Pain. 60 Tab 1 01/15/2019 Active ibuprofen (ADVIL;MOTRIN) 600 mg Oral Tablet Take 1 Tab by mouth every 6 hours as needed for Pain. 60 Tab 1 01/15/2019 Active Cpzceymx-Eg-Tuz- Fe-FA ( VITAMIN) Oral Tablet Take 1 Tab by mouth daily. 30 Tab 03/31/2020 Active Active Problems Problem Noted Date Diagnosed Date Normal vaginal delivery 01/13/2019 Surgical History Surgery Date Site/Laterality Comments URETER SURGERY Age 4 Medical History Medical History Date Comments Asthma Family History Medical History Relation Name Comments Diabetes Maternal Grandfather Cancer Paternal Grandmother Relation Name Status Comments Father Alive Maternal Grandfather Alive Maternal Grandmother Alive Mother Alive Paternal Grandfather Paternal Grandmother Social History Tobacco Use Types Packs/Day Years Used Date Smoking Tobacco: Never Smokeless Tobacco: Never Alcohol Use Standard Drinks/Week Comments Not Currently 0 (1 standard drink = 0.6 oz pur e alcohol) Comments Unknown Sex and Gender Information Value Date Recorded Sex Assigned at Not on file Legal Sex Female 4:41 AM EDT Gender Identity Not on file Sexual Orientation Not on file Obstetrics History Para Term AB IAB SAB Ectopic Multiple Livin g Live Births 1 1 1 0 1 1 Date Outcome GA Total Labor Labor/2nd/3rd Weight Sex Type Anes PTL Meghan A1 A5 Name Clin 019 Term 40w 6d 0h 05m 0h 05m 8 lb 2.5 oz (3.7 kg) M Vag-S pont Epidur al N Livin g 5 9 CHUML EY,DA NI BABY Ignacio Johnson MD Delivery Location:[facility] ([facility]) Last Filed Vital Signs Vital Sign Reading Time Taken Comments Blood Pressure 110/73 03/31/2020 6:17 PM EDT Pulse 90 03/31/2020 6:17 PM EDT Temperature 36.9 C (98.4 F) 03/31/2020 6:17 PM EDT Respiratory Rate 16 03/31/2020 6:17 PM EDT Oxygen Saturation 100% 03/31/2020 6:17 PM EDT Inhaled Oxygen Concentration - - Weight 59 kg (130 lb) 03/31/2020 6:17 PM EDT Height 157.5 cm (5' 2 ) 01/13/2019 3:39 AM EDT Body Mass Index 23.78 01/13/2019 3:39 AM EDT Plan of Treatment Health Maintenance Due Date Last Done Comments Annual Wellness Exam 2002 Hepatitis B Vaccine (1 of 3 - 19+ 3-dose series) 2018 DTaP/TDaP/Td (2 - Td or Tdap) 08/15/2020 08/15/2010 COVID-19 Vaccine ( season) 2024 Influenza Vaccine (#1) 2025 , 05/30/2018, 05/27/2013, Additional history exists HPV Completed 05/27/2013, 05/25, 08/15/2010 Meningococcal B Vaccine Aged Out No l onger eligible based on patient's age to complete this topic Pneumococcal Vaccine 0-49 Aged Out No longer eligible based on patient's age to complete this topic Advance Directives For more information, please contact: [phone] * Full Code (Latest Code Status on File) Date Activated Date Inactivated Comments 01/13/2019 4:02 AM 01/15/2019 7:35 PM Care Teams Certified Nurse Midwife Relationship Specialty Start Date End Date Temo Marie MD [address] [address] [address] [facility] [place] [address] PCP - General Pediatrics 10/30/15
== END 2025-01-07 23:59 | disposition home or self-care (01) ==
LOC: RAD 12:08
PROVIDERS: PCP Physician Assistant; Visit Provider Obstetrics & Gynecology
DX: O35.EXX0 Maternal care for other (suspected) fetal abnormality and damage, fetal genitourinary anomalies, not applicable or unspecified (principal); Z36.4 Encounter for antenatal screening for fetal growth retardation; Z3A.36 36 weeks gestation of pregnancy
CPT/HCPCS: 76816; 86403

== ENCOUNTER 2025-01-28 04:14 | Inpatient (IN) | payer MEDICAID, SELFPAY ==
[2025-01-28 04:19] VITALS: BMI 30.4
--- OUTSIDE RECORDS SUMMARY | 2025-01-28 04:19 | XMS_ITS | Clinical Summary ---
Author Organization [facility] Address [address] [place] [address] Phone Care Team Providers Care Special Certificate Dictator Name Role Phone Temo Marie MD Primary Care Provider [phone] Allergies No known active allergies Medications acetaminophen (TYLENOL) 500 mg Oral Tablet Take 2 Tabs by mouth every 6 hours as needed for Pain. 60 Tab 1 01/15/2019 Active ibuprofen (ADVIL;MOTRIN) 600 mg Oral Tablet Take 1 Tab by mouth every 6 hours as needed for Pain. 60 Tab 1 01/15/2019 Active Gtwxwvoe-Mo-Rql- Fe-FA ( VITAMIN) Oral Tablet Take 1 [...] EY,DA NI BABY Ignacio Johnson MD Delivery Location:[facility] ([facility]) Last Filed Vital [...] Advance Directives For more information, please contact: [phone] * Full Code (Latest Code Status on File) Date Activated Date Inactivated Comments 01/13/2019 4:02 AM 01/15/2019 7:35 PM Care Teams Special Certificate Dictator Relationship Specialty Start Date End Date Temo Marie MD [address] [facility] [address] [address] [place] [address] PCP - General Pediatrics 10/30/15
[2025-01-28] MEDS: DEXTROSE 5%-LACTATED RINGERS 1,000 ML 125 ML IV (04:42)
[2025-01-28] MEDS: LACTATED RINGERS 1000ML 1,000 ML 500 ML IV (04:42)
[2025-01-28 04:50] VITALS: BP 126/73; PULSE 78; RESP 18; TEMP 36.8; O2SAT 99; BMI 30.4
[2025-01-28 04:57] LABS: Microscopic, Urine URINE MICROSCOPIC (MICROSCOPIC)
[2025-01-28 05:00] LABS: Hematocrit 33.3 % (37.0-47.0); Hemoglobin 10.6 g/dL (12.2-16.2); Immature Granulocytes % 0.5 %; Mean Corpuscular HGB Conc 31.8 g/dL (31.8-35.4); Mean Corpuscular Hemoglobin 26.4 pg (27.0-31.2); Mean Corpuscular Volume 82.8 fl (81-99); Nucleated Red Blood Cells % 0 %; Platelet Count 302 K/mm3 (142-424); Red Blood Count 4.02 M/mm3 (4.20-5.40); Red Cell Distribution Width-SD 45.9 fL; White Blood Count 9.4 K/mm3 (4.8-10.8)
[2025-01-28 05:01] LABS: Bilirubin,Urine Negative (Negative); Color,Urine YELLOW (Yellow); Glucose,Urine (UA) Negative (Negative); Ketones,Urine Negative (Negative); Leukocyte Esterase,Urine Negative (Negative); PH,Urine 6.0 (5.0-8.5); Protein,Urine Negative (Negative); Specific Gravity, Urine 1.020 (1.005-1.030); Urobilinogen,Urine 0.2 EU/dl (0.2)
[2025-01-28] MEDS: OXYTOCIN/RINGERS LACTATE 30 UNITS/500 ML BAG IV (05:03)
[2025-01-28 05:13] LABS: Bacteria,Urine Trace /lpf
--- NOTE | 2025-01-28 09:41 | P.PNANES_ITS ---
[facility] Disclaimer: The information contained in this section may have been updated after the patient was seen, as this information can be updated by other users. Medical History Anemia Miscarriage Dental caries Surgical History History of excision of pilonidal cyst History of bladder surgery Family History Other Alcoholism Asthma Cancer Diabetes Heart attack Hyperlipidemia Hypertension No significant family history Stroke Social History (Updated 01/28/25 @ 07:56 by Esmer Williamson RN) Smoking Status: Current every day smoker tobacco type: e-cigarettes alcohol intake: never substance use type: denies use current occupational status: unemployed Travel in the last 8 weeks?: None household members: spouse, family and children marital status: do you feel safe at home: Yes victim of physical abuse: No victim of emotional abuse: No victim of sexual abuse: No Have you lived/traveled outside US in past 30 days?: No Contact w/someone who lives/traveled outside US past 30 days?: No Exposure to someone with infectious disease in past 14 days?: No Do you have a fever (greater than 100.4 F or 38 C)?: No Have you tested positive for COVID-19?: No Exposed to someone with COVID-19 in past 14 days?: No Do you have a sore throat?: No Do you have a cough?: No Do you have any weakness?: No Are you experiencing any nausea/vomitting?: No Do you have any diarrhea?: No Are you experiencing any unusual bleeding?: No Do you have any muscle aches/pain?: No Do you have any abdominal pain?: No Are you experiencing loss of taste or smell?: No [facility] Anesthesia Checklist Patient Identification Patient Identification: Arm Band and Verbal (Name & ) Structural Data Admitted From: Inpatient Planned Operative Procedure/s: Labor epidural Verified Documents: Surgical Consent NPO Status Verified Time NPO: 00:00 Chart Verification Results Verified: CBC Additional verifications Patient : Yes Anesthesia Reactions: No Hx Blood Transfusions: No Blood Transfusion Reaction: No Airway Assessment Mallampati Score:: Class II C-Spine Mobility Assessed: No TMJ Mobility Assessed: No Dentition: Good Dentition Neurological Assessment Level of Consciousness: Awake, Alert and Appropriate Anesthesia Plan Anesthesia Risk discussed: Yes Anesthesia Plan: Verified ASA Class: II Anesthesia Type: Epidural
--- NOTE | 2025-01-28 12:36 | EXP.HP ---
History of Present Illness *Admission Date: 01/28/25 *Reason for visit:: Induction *History of present illness: Dominguez Stringer is a 24yo who presents for induction at 39w0d gestation for induction. RUSTAM based on 12week US. Her has been fairly uncomplicated. Of note infant had mild renal pelvis dilation. On presentation patient endorsed good movement and denies any leakage of fluid or vaginal bleeding. O+, antibody negative, rubella immune, hepatitis B negative, hepatitis C negative, RPR negative, HIV negative 1 hour GTT: not completed GBS negative PFSH [facility] Disclaimer: The information contained in this section may have been updated after the patient was seen, as this information can be updated by other users. Medical History Anemia Miscarriage Dental caries Surgical History History of excision of pilonidal cyst History of bladder surgery Family History Other Alcoholism Asthma Cancer Diabetes Heart attack Hyperlipidemia Hypertension No significant family history Stroke Social History (Updated 01/28/25 @ 07:56 by Esmer Williamson RN) Smoking Status: Current every day smoker tobacco type: e-cigarettes alcohol intake: never substance use type: denies use current occupational status: unemployed Travel in the last 8 weeks?: None household members: spouse, family and children marital status: do you feel safe at home: Yes victim of physical abuse: No victim of emotional abuse: No victim of sexual abuse: No Have you lived/traveled outside US in past 30 days?: No Contact w/someone who lives/traveled outside US past 30 days?: No Exposure to someone with infectious disease in past 14 days?: No Do you have a fever (greater than 100.4 F or 38 C)?: No Have you tested positive for COVID-19?: No Exposed to someone with COVID-19 in past 14 days?: No Do you have a sore throat?: No Do you have a cough?: No Do you have any weakness?: No Are you experiencing any nausea/vomitting?: No Do you have any diarrhea?: No Are you experiencing any unusual bleeding?: No Do you have any muscle aches/pain?: No Do you have any abdominal pain?: No Are you experiencing loss of taste or smell?: No Other Medical History Have you received the Flu Vaccine for this season: No Have you received the Pneumonia Vaccine: No Review of Systems Review of Systems Review of systems (narrative): Review of Systems Constitutional: Denies fever, chills, and sweats Eyes: Denies vision change/ pain Respiratory: Denies cough and shortness of breath Cardiovascular: Denies chest pain and lightheadedness Gastrointestinal: Admits abdominal pain with contractions this morning. Denies nausea, vomiting. Genitourinary: Denies dysuria and incontinence Musculoskeletal: Denies shoulder pain and back pain Neurological: Denies change in speech or headaches Meds Home Medications and Allergies Home Medications ?Medication ?Instructions ?Recorded ?Confirmed ?Type albuterol sulfate 90 mcg/actuation 2 puff inhalation Q4-6H PRN 07/03/24 01/22/25 Rx aerosol inhaler shortness of breath or wheezing #8.5 grams vitamins with calcium 1 tab PO DAILY #90 tabs 07/03/24 01/22/25 Rx no.72-iron 29 mg-folic acid 1 mg tablet New Prescriptions to Start Prescriptions: Allergies Allergy/AdvReac Type Severity Reaction Status Date / Time No Known Allergies Allergy Verified 01/22/25 11:20 Exam Data for Last 24 hours Vital signs and Labs for Last 24 Hours: Temp Pulse Resp BP Pulse Ox O2 Del Method 98.3 F 78 18 126/73 99 Room Air 01/28/25 04:50 01/28/25 04:50 01/28/25 04:50 01/28/25 04:50 01/28/25 04:50 01/28/25 04:50 Laboratory Results - last 24 hr 01/28/25 04:10: Urine Color Yellow, Urine Appearance Clear, Urine pH 6.0, Ur Specific [place] 1.020, Urine Protein Negative, Urine Glucose (UA) Negative, Urine Ketones Negative, Urine Blood Negative, Urine Nitrate Negative, Urine Bilirubin Negative, Urine Urobilinogen 0.2, Ur Leukocyte Esterase Negative, Urine RBC None, Urine WBC None, Ur Squamous Epith Cells 3-5, Urine Bacteria Trace 01/28/25 04:42: WBC 9.4, RBC 4.02 L, Hgb 10.6 L, Hct 33.3 L, MCV 82.8, MCH 26.4 L, MCHC 31.8, RDW 15.3, Plt Count 302, MPV 9.3, Neut % (Auto) 65.0, Lymph % (Auto) 21.8, [place] % (Auto) 9.5 H, Eos % (Auto) 3.1, Baso % (Auto) 0.1, Neut # (Auto) 6.1, Lymph # (Auto) 2.1, [place] # (Auto) 0.9, Eos # (Auto) 0.3, Baso # (Auto) 0.0, Blood Type O Positive, Antibody Screen Negative I & O for Last 24 hours: Intake & Output 01/25/25 01/26/25 01/27/25 01/28/25 23:59 23:59 23:59 23:59 Weight 194 lb 0.003 oz Narrative: General: patient is alert oriented in no acute distress and responds appropriately to questions. HEENT: NCAT, EOMI, moist mucous membranes, neck supple with full ROM Cardiovascular: RRR +S1/S2, no murmurs or rubs Pulmonary: Clear to auscultation bilaterally, nonlabored breathing, symmetric chest rise Abdominal: Gravid abdomen appropriate for gestation. No guarding, rebound, or tenderness noted. Extremities: trace edema, no tenderness or cyanosis noted Skin: Normal turgor, intact, warm. Negative for erythema, pallor, petechia, or lesions Neurologic: Negative for sensory or motor deficit Psychiatric: Normal affect, normal thought process, good judgment and insight, no depression or anxious mood appreciated. *Routine HEENT Exam Head: Present normocephalic and atraumatic Eye: Present EOMI, PERRL and normal accommodation; Absent conjunctival icterus, scleral injection, nystagmus or exophthalmos ENT: Present mucous membranes moist *Routine Respiratory Exam Respiratory: Present CTA bilaterally, normal respiratory effort, able to speak in complete sentences and symmetric chest movement; Absent accessory muscle use, decreased breath sounds, rales, respiratory distress, wheezes, distant breath sounds or diminished air movement *Routine Cardiovascular Exam Cardiovascular: Present RRR, Normal S1 and Normal S2; Absent murmur or gallop *Routine Abdominal Exam Abdominal: Present soft and normoactive bowel sounds; Absent tenderness, distended, rebound or guarding *Routine Rectal Exam Rectal:: deferred *Routine Genitalia Exam Genitalia:: normal female Assessment and Plan *Assessment and plan (1) 39 weeks gestation of : Status: Resolved Category: Medical Code(s): Z3A.39 - 39 weeks gestation of (2) Dilated renal pelvis: Status: Acute Category: Medical Code(s): N28.89 - Other specified disorders of kidney and ureter (3) Encounter for induction of labor: Status: Acute Category: Medical Code(s): Z34.90 - Encounter for supervision of normal , unspecified, unspecified trimester Plan - Monitor vitals - Admit to L&D for induction of labor - Plan for induction with Pitocin, per protocol - External FHR and TOCO monitor - Exam on admission: /-3 - GBS neg/ Blood type: O+ - Hemoglobin: 10.6, Plt: 302 - Plan for epidural anesthesia - Anticipate vaginal delivery #renal pelvis dilation of fetus - US
[2025-01-28 13:20] LABS: Microscopic, Urine URINE MICROSCOPIC (MICROSCOPIC)
[2025-01-28 13:31] LABS: Bilirubin,Urine Negative (Negative); Color,Urine YELLOW (Yellow); Glucose,Urine (UA) Negative (Negative); Ketones,Urine Negative (Negative); Leukocyte Esterase,Urine Negative (Negative); PH,Urine 7.0 (5.0-8.5); Protein,Urine Negative (Negative); Specific Gravity, Urine <= 1.005 (1.005-1.030); Urobilinogen,Urine 0.2 EU/dl (0.2)
[2025-01-28] MEDS: ONDANSETRON 4MG/2ML VIAL 4 MG IV (14:05)
[2025-01-28 14:13] LABS: Squamous Epithelial Cell,Urine Occasional #/hpf (0-5); WBC,Urine Occasional #/hpf (0-3)
[2025-01-28] MEDS: OXYTOCIN/RINGERS LACTATE 30 UNITS/500 ML BAG 999 UNITS IV (17:35)
[2025-01-28] MEDS: OXYTOCIN/RINGERS LACTATE 30 UNITS/500 ML BAG 40 UNITS IV (17:50)
--- NOTE | 2025-01-28 18:25 | EXP.DN ---
Delivery Note Delivery Date:: 01/28/25 Delivery Time:: 17:30 Anesthesia Type: Epidural Was labor medically induced?: Yes Induction method: per pitocin protocol Gestational age (weeks): 39 delivered prior to 39 weeks?: No Infant Gender: Male at 1 minute: 8 at 5 minutes: 9 Delivery Procedure:: Preoperative diagnosis: 1. at 39 completed this weeks gestation, vertex 2. Rh positive 3. GBS negative 4. Renal pelvis dilation of fetus Postoperative diagnosis: 1. at 39 completed this weeks gestation, vertex 2. Rh positive 3. GBS negative 4. Renal pelvis dilation of fetus EBL: 150mL Specimen: 1. Cord blood Findings: 1. Liveborn viable male : Carlos. Apgars 8/9 at 1 and 5 minutes respectively. Weight: 8lb 11oz Complications: None Procedure: Nonoperative spontaneous vaginal delivery Dominguez Stringer is a 24-year-old G5, P3 who presented for induction of labor at term. She received Pitocin and AROM for induction. Rupture of membranes revealed clear fluid. She received an epidural for anesthesia. She progressed to complete. The was noted to be in direct OA position. With effective maternal pushing there was a nonoperative spontaneous vaginal delivery at 1730. There was a nuchal cord x1 that was reduced without difficulty. The anterior right shoulder delivered, followed by the posterior shoulder without dystocia. The body and lower extremities delivered without difficulty. The was bulb suctioned and was crying immediately following delivery. The infant was placed on the maternal abdomen and greater than one minute was appreciated for delayed cord clamping. The umbilical cord was doubly clamped and cut. Cord blood was collected and sent for routine testing. There was a true knot noted in the umbilical cord. The placenta delivered with cord traction and suprapubic contertraction. Pitocin was started. The uterus was firm and bleeding was minimal. The perineum, vaginal reynolds, cervix, and paraurethral area were inspected thoroughly and free of laceration. This concluded the delivery. The patient was counseled regarding the events of the delivery and repair. The patient tolerated the delivery well. All counts were correct by nursing. Mother and were doing well and bonding upon my leaving the delivery room. Placental Delivery Description: Spontaneous
[2025-01-28 19:55] LABS: RPR W/RFX Titers Nonreactive (Nonreactive)
[2025-01-28] MEDS: BENZOCAINE-MENTHOL SPRAY 56GM CAN TP (20:00)
[2025-01-29] MEDS: IBUPROFEN 400 MG TABLET 800 MG PO ×3 (00:15→19:55)
[2025-01-29] MEDS: ACETAMINOPHEN 500MG TAB 1000 MG PO ×3 (04:05→19:57)
[2025-01-29 06:11] LABS: Hematocrit 32.4 % (37.0-47.0); Hemoglobin 10.0 g/dL (12.2-16.2); Immature Granulocytes % 0.5 %; Mean Corpuscular HGB Conc 30.9 g/dL (31.8-35.4); Mean Corpuscular Hemoglobin 26.1 pg (27.0-31.2); Mean Corpuscular Volume 84.6 fl (81-99); Nucleated Red Blood Cells % 0 %; Platelet Count 271 K/mm3 (142-424); Red Blood Count 3.83 M/mm3 (4.20-5.40); Red Cell Distribution Width-SD 47.3 fL; White Blood Count 12.4 K/mm3 (4.8-10.8)
--- NOTE | 2025-01-29 09:14 | EXP.PN ---
Subjective *Date: 01/29/25 *Time: 09:14 Interval history: Dominguez Stringer is a G5, P4 day #1 following a normal spontaneous vaginal delivery at 39 weeks and 0 days gestation. Routine delivery and course. She is doing well, sitting up in bed -Reports pain is well-controlled -Reports she is tolerating p.o. without nausea or vomiting. -Reports her lochia is scant. -Desires bilateral salpingectomy -She is bottle-feeding her male infant -Ambulating, voiding difficulty or dysuria. Denies chest pain shortness of breath or pain in her legs. No further complaints at this time. Exam Data for Last 24 hours Vital signs and Labs for Last 24 Hours: Temp Pulse Resp BP Pulse Ox O2 Del Method 98.3 F 78 18 126/73 99 Room Air 01/28/25 04:50 01/28/25 04:50 01/28/25 04:50 01/28/25 04:50 01/28/25 04:50 01/28/25 04:50 Laboratory Results - last 24 hr 01/28/25 04:42: RPR w/Rflx to Titer Nonreactive 01/28/25 12:57: Urine Color Yellow, Urine Appearance Clear, Urine pH 7.0, Ur Specific [place] <= 1.005, Urine Protein Negative, Urine Glucose (UA) Negative, Urine Ketones Negative, Urine Blood Negative, Urine Nitrate Negative, Urine Bilirubin Negative, Urine Urobilinogen 0.2, Ur Leukocyte Esterase Negative, Urine RBC None, Urine WBC Occasional, Ur Squamous Epith Cells Occasional, Urine Bacteria None 01/29/25 04:39: WBC 12.4 H D, RBC 3.83 L, Hgb 10.0 L, Hct 32.4 L, MCV 84.6, MCH 26.1 L, MCHC 30.9 L, RDW 15.4, Plt Count 271, MPV 9.4, Neut % (Auto) 77.6, Lymph % (Auto) 13.6, [place] % (Auto) 7.1, Eos % (Auto) 1.0, Baso % (Auto) 0.2, Neut # (Auto) 9.6 H, Lymph # (Auto) 1.7, [place] # (Auto) 0.9, Eos # (Auto) 0.1, Baso # (Auto) 0.0 I & O for Last 24 hours: Intake & Output 01/26/25 01/27/25 01/28/25 01/29/25 23:59 23:59 23:59 23:59 Weight 194 lb 0.003 oz Narrative: General: patient is alert oriented in no acute distress and responds appropriately to questions. Appears to be in minimal pain. HEENT: NCAT, EOMI, moist mucous membranes, neck supple with full ROM Cardiovascular: RRR +S1/S2, no murmurs or rubs Pulmonary: Clear to auscultation bilaterally, nonlabored breathing, symmetric chest rise Abdominal: Fundus below the umbilicus, firm, and tenderness appropriate for the period. Extremities: trace edema, no tenderness or cyanosis noted Skin: Normal turgor, intact, warm. Negative for erythema, pallor, petechia, or lesions Neurologic: Negative for sensory or motor deficit Psychiatric: Normal affect, normal thought process, good judgment and insight, no depression or anxious mood appreciated. Assessment and Plan *Assessment and plan (1) (spontaneous vaginal delivery): Status: Acute Category: Medical Code(s): O80 - Encounter for full-term uncomplicated delivery Plan Stable. PPD#1 s/p -IP. -Doing well. VSS. Serial lochia and fundal checks. -Continue with perineal ice packs for discomfort -Hemoglobin: 10.6--> 10.0 -O+/antibody negative -Bottlefeeding, male infant -Desires circumcision -Contraception: bilateral salpingectomy -Follow-up 2 weeks for routine visit -Dispo: home in 1-3 days pending mother/ status
[2025-01-29] MEDS: OXYCODONE 5MG IMMEDIATE RELEASE TABLET 5 MG PO (13:15)
[2025-01-30] MEDS: ACETAMINOPHEN 500MG TAB 1000 MG PO ×2 (00:11→07:39)
[2025-01-30] MEDS: IBUPROFEN 400 MG TABLET 800 MG PO (02:54)
[2025-01-30 04:07] VITALS: BP 105/64; PULSE 74; RESP 18; TEMP 36.6; O2SAT 100
--- NOTE | 2025-01-30 08:40 | P.DS_ITS ---
General Admission date:: 01/28/25 Discharge date: 01/30/25 HPI HPI HPI: Dominguez Stringer is a 24yo who presents for induction at 39w0d gestation for induction. RUSTAM based on 12week US. Her has been fairly uncomplicated. Of note had mild renal pelvis dilation. On presentation patient endorsed good movement and denies any leakage of fluid or vaginal bleeding. O+, antibody negative, rubella immune, hepatitis B negative, hepatitis C negative, RPR negative, HIV negative 1 hour GTT: not completed GBS negative Hospital Course Hospital Course Hospital Course: Dominguez Stringer is a 24yo distended #1 pending spontaneous vaginal delivery at 39 weeks and 2 days gestation. She delivered a live viable male infant on 01/28/2025 at 1730. weighed 8 pounds 11 ounces. Apgars were 8 and 9 at 1 and 5 minutes respectively. EBL was 150. Rubella immune, GBS negative, and O+ blood type. She has done well and has remained afebrile with her at her hospitalization. She is eating and drinking and ambulating. She is bottlefeeding. Her lochia is normal. She will be discharged home to follow-up with Dr. Harvey in 2 weeks time. She will continue with her vitamins and iron. She will take ibuprofen as well. She was given the usual instructions with respect to limiting her activity, driving and sexual activity. She was given instructions with respect to wound care. Her condition on discharge is stable and improved. Exam Data for Last 24 hours Vital signs and Labs for Last 24 Hours: Temp Pulse Resp BP Pulse Ox O2 Del Method 97.9 F 74 18 105/64 L 100 Room Air 01/30/25 04:07 01/30/25 04:07 01/30/25 04:07 01/30/25 04:07 01/30/25 04:07 01/30/25 04:07 I & O for Last 24 hours: Intake & Output 01/27/25 01/28/25 01/29/25 01/30/25 23:59 23:59 23:59 23:59 Weight 194 lb 0.003 oz Narrative: General: patient is alert oriented in no acute distress and responds appropriately to questions. Appears to be in minimal pain. HEENT: NCAT, EOMI, moist mucous membranes, neck supple with full ROM Cardiovascular: RRR +S1/S2, no murmurs or rubs Pulmonary: Clear to auscultation bilaterally, nonlabored breathing, symmetric chest rise Abdominal: Fundus below the umbilicus, firm, and tenderness appropriate for the period. Extremities: trace edema, no tenderness or cyanosis noted Skin: Normal turgor, intact, warm. Negative for erythema, pallor, petechia, or lesions Neurologic: Negative for sensory or motor deficit Psychiatric: Normal affect, normal thought process, good judgment and insight, no depression or anxious mood appreciated. DS: Diagnosis Discharge Diagnosis (1) (spontaneous vaginal delivery): Status: Acute Code(s): O80 - Encounter for full-term uncomplicated delivery Meds Home Medications and Allergies Home Medications ?Medication ?Instructions ?Recorded ?Confirmed ?Type albuterol sulfate 90 mcg/actuation 2 puff inhalation Q 4-6H PRN 07/03/24 01/28/25 Rx aerosol inhaler shortness of breath or wheez ing #8.5 grams vitamins with calcium 1 tab PO DAILY #90 tabs 07/03/24 01/28/25 Rx no.72-iron 29 mg-folic acid 1 mg tablet acetaminophen 500 mg tablet 500 mg PO Q6H PRN fever or pain 01/30/25 Rx #30 tabs ferrous sulfate 325 mg (65 mg 325 mg PO DAILY #30 tabs 01/30/25 Rx iron) tablet,delayed release ibuprofen 800 mg tablet 800 mg PO Q8H PRN pain #60 t abs 01/30/25 Rx sennosides 8.6 mg tablet (Senna 8.6 mg PO BIDP PRN Con stipation 01/30/25 Rx Lax) #60 tabs New Prescriptions to Start Prescriptions: acetaminophen Racheal Harvey ferrous sulfate Racheal Harvey ibuprofen Racheal Harvey sennosides [Senna Lax] Racheal Harvey Allergies Allergy/AdvReac Type Severity Reaction Status Date / Time No Known Allergies Allergy Verified 01/22/25 11:20 Discharge Plan Disposition Patient Disposition: Home, Self-Care Discharge Order Discharge Orders: Discharge Order (Routine); Ordered 01/30/25 Ordered By: Racheal Harvey Follow up Plan Follow up with: Racheal Harvey DO [Staff Physician, SENIOR ARCHITECTURAL DESIGNER] - Enter time for follow up Prescriptions/Medication Reconciliation: New sennosides [Senna Lax] 8.6 mg Tablet 8.6 mg PO BIDP PRN (Reason: Constipation) Qty: 60 2RF ibuprofen 800 mg tablet 800 mg PO Q8H PRN (Reason: pain) Qty: 60 2RF acetaminophen 500 mg tablet 500 mg PO Q6H PRN (Reason: fever or pain) Qty: 30 3RF ferrous sulfate 325 mg (65 mg iron) tablet,delayed release (DR/EC) 325 mg PO DAILY Qty: 30 3RF Continued albuterol sulfate 90 mcg/actuation HFA aerosol inhaler 2 puff inhalation Q4-6H PRN (Reason: shortness of breath or wheezing) Qty: 8.5 0RF PNV,calcium 72-iron,carb-folic 29 mg iron- 1 mg tablet 1 tab PO DAILY Qty: 90 3RF Problem Reconciliation Problems Reviewed?: Yes Patient Discharge Instructions ACTIVITY: Continue current activity DIET: regular diet Additional Instructions: Congratulations on the delivery of your sweet baby boy. It is my privilege to be your doctor and I am so thankful I could be a part of your special day. Discharge: -Take 800 mg Ibuprofen every 8 hours as needed for pain. You can also take 500- 1000 mg of Tylenol in between doses, every 6-8 hours. -Colace can be taken 1-2 times per day as you need to soften your stool. Make sure to drink at least 8 cups of water per day. -Iron supplements can make you constipated. You can take iron tablets every other day if constipation is too bad. -Nothing in the vagina for 6 weeks - no intercourse, douching, tampons. No tub baths or swimming pools. -Do not lift greater than 20pounds for 2 weeks, this is the equivalent of 2 gallons of milk. -Reasons to return to L&D or call On-Call doctor - fever (greater than 100.4) - heavy vaginal bleeding (soaking through 1 pad in less than 2 hours or passing clots that are egg sized) - vaginal discharge (malodorous and/or purulent) - severe headaches, leg tenderness/edema, or any other symptoms that warrant immediate medical attention. depression/blues - Normal to feel anxious/overwhelmed for first 2 weeks - Talk to your doctor if: anxiety lasts over 2 weeks, trouble bonding with baby, withdrawing from other family members, thoughts of harming yourself or others Blood pressure and preeclampsia instructions -Please call if greater than 2 values are higher than: 150 systolic (the top number) or 100 diastolic (the bottom number). -Please go to the emergency room or labor and delivery triage if any value is higher than: 160 systolic (the top number) or 110 diastolic (the bottom number). -Please call if unrelenting headache (does not go away with rest or Tylenol or ibuprofen), changes in vision (spots, floaters, flashes of light), chest pain, shortness of breath, or right upper quadrant (liver) abdominal pain. Racheal Harvey DO [facility] [phone] *Nothing in the Vagina for 6 weeks* *No strenuous activity* *No heavy lifting* *No tub baths until okay's by MD* Print Language: Malay Providers Primary Care Provider: Provider,Referral Admit Provider: Racheal Harvey Attending Provider: Racheal Harvey
[2025-01-30 08:45] VITALS: BP 122/61; PULSE 86; RESP 17; TEMP 36.8; O2SAT 97
== END 2025-01-30 15:00 | disposition home or self-care (01) | DRG 807 ==
PROVIDERS: Admitting Provider Obstetrics & Gynecology; Visit Provider Obstetrics & Gynecology
DX: O35.8XX0 Maternal care for other (suspected) fetal abnormality and damage, not applicable or unspecified (principal); Z37.0 Single live birth; Z3A.39 39 weeks gestation of pregnancy; O99.334 Smoking (tobacco) complicating childbirth; F17.290 Nicotine dependence, other tobacco product, uncomplicated; O69.81X0 Labor and delivery complicated by cord around neck, without compression, not applicable or unspecified; O69.2XX0 Labor and delivery complicated by other cord entanglement, with compression, not applicable or unspecified; Z23 Encounter for immunization
CPT/HCPCS: 36415; 51702; 59025; 81001; 85025; 86592; 86850; 94761; J2003; J2405; J2795; J3010; J7120; J7121

== ENCOUNTER 2025-04-29 17:45 | Emergency (ER) | payer MEDICAID, SELFPAY ==
[2025-04-29 17:52] VITALS: BP 150/93; PULSE 87; RESP 18; TEMP 36.8; O2SAT 96; BMI 27.6
--- OUTSIDE RECORDS SUMMARY | 2025-04-29 18:03 | XMS_ITS | Clinical Summary ---
Author Organization [facility] Address [address] [place] [address] Phone Care Team Providers Care Body Care Manager Name Role Phone Temo Marie MD Primary Care Provider [phone] Allergies No known active allergies Medications acetaminophen (TYLENOL) 500 mg Oral Tablet Take 2 Tabs by mouth every 6 hours as needed for Pain. 60 Tab 1 01/15/2019 Active ibuprofen (ADVIL;MOTRIN) 600 mg Oral Tablet Take 1 Tab by mouth every 6 hours as needed for Pain. 60 Tab 1 01/15/2019 Active Kjufmqsf-Nt-Czl- Fe-FA ( VITAMIN) Oral Tablet Take 1 [...] EY,DA NI BABY Ignacio Johnson MD Delivery Location:[facility] ([facility]) Last Filed Vital Signs [...] Tdap) 08/15/2020 08/15/2010 COVID-19 Vaccine ( season) 2025 Influenza Vaccine (#1) 2025 , 05/30/2018, 05/27/2013, Additional history exists HPV Completed 05/27/2013, 05/25, 08/15/2010 Meningococcal B Vaccine Aged Out No l onger eligible based on patient's age to complete this topic Pneumococcal Vaccine 0-49 Aged Out No longer eligible based on patient's age to complete this topic Advance Directives For more information, please contact: [phone] * Full Code (Latest Code Status on File) Date Activated Date Inactivated Comments 01/13/2019 4:02 AM 01/15/2019 7:35 PM Care Teams Body Care Manager Relationship Specialty Start Date End Date Temo Marie MD [address] [place] [address] PCP - General Pediatrics 10/30/15
--- NOTE | 2025-04-29 18:18 | PC.NURSE ---
Pt rounded on and updated on POC. No needs voiced @ this time.
== END 2025-04-29 20:12 | disposition left against medical advice (07) ==
LOC: ER 18:02
PROVIDERS: Emergency Provider Student in an Organized Health Care Education/Training Program
DX: Z53.21 Procedure and treatment not carried out due to patient leaving prior to being seen by health care provider (principal)
CPT/HCPCS: 99211; 99282

== ENCOUNTER 2025-04-30 09:20 | Emergency (ER) | payer MEDICAID, SELFPAY ==
[2025-04-30 09:22] VITALS: BP 138/74; PULSE 97; RESP 20; TEMP 36.4; O2SAT 97; BMI 26.1
[2025-04-30 09:30] VITALS: BP 120/85; PULSE 103; O2SAT 97
--- NOTE | 2025-04-30 09:36 | ED_ITS ---
Discharge Plan Disposition Patient Disposition: Home, Self-Care Condition: Good Prescriptions Prescriptions: New sulfamethoxazole-trimethoprim [Bactrim DS] 800-160 mg tablet 1 tab PO DAILY 5 Days Qty: 10 0RF No Action albuterol sulfate 90 mcg/actuation HFA aerosol inhaler 2 puff inhalation Q4-6H PRN (Reason: shortness of breath or wheezing) Qty: 8.5 0RF PNV,calcium 72-iron,carb-folic 29 mg iron- 1 mg tablet 1 tab PO DAILY Qty: 90 3RF hydroxyzine HCl 25 mg tablet 25 mg PO HS Qty: 30 5RF Referrals Follow up/Referrals: Provider,Referral, MD [Primary Care Provider, Medical] - See instructions Activity Restrictions/Add. Instructions Additional Instructions/Restrictions: Take the antibiotics as prescribed for 5 days. You will need to cut the stitch that is in place in 5 days. If you do not want to cut it yourself you can return here to the emergency department. The wound will likely continue to drain with blood and/or pus. You may shower as usual. Keep the wound covered with gauze until you remove the stitch in 5 days. Return to the emergency department if you have acute significant worsening pain, developement of fevers return to the ER. Clinical Impressions Clinical Impression: Pilonidal abscess Stand Alone Forms Stand Alone Forms: Work/School Release Instructions Patient Instructions: DI for Skin Abscess Print Language Print Language: Turkmen Discharge ED Provider: Nilda Bang Adult HPI General Chief complaint: Skin/Abscess/Foreign Body Stated complaint: possible cyst on lower back, pain, swelling Time Seen by Provider: 04/30/25 09:29 Mode of Arrival: Ambulatory Description of Symptoms (Recalled from ER Triage Doc. by RN): pt states she is here for a pilonidal cyst, had one a few years ago got it cut twice and then had surgery, this new one popped up about a week ago,pt denies any other s/s History of Present Illness HPI narrative: Patient is a 24-year-old female with a history of pilonidal cysts that has required I&D's with both general surgery as well in the emergency department who presents to the emergency department with pain in her rectal region. Patient states that it is comfortable nature. Patient has not had any drainage or fevers. Patient has not had any other associated symptoms. States that has been more than a year since it had to be drained last time. States that her symptoms have been there for about a week and got worse in the last day. Patient denies any other associated symptoms or medical problems. Related Data Previous Rx's ?Medication ?Instructions ?Recorded albuterol sulfate 90 mcg/actuation 2 puff inhalation Q 4-6H PRN 07/03/24 aerosol inhaler shortness of breath or wheez ing #8.5 grams vitamins with calcium 1 tab PO DAILY #90 tabs 07/03/24 no.72-iron 29 mg-folic acid 1 mg tablet hydroxyzine HCl 25 mg tablet 25 mg PO HS #30 tabs 10/17 sulfamethoxazole 800 1 tab PO DAILY 5 days #10 ta bs 04/30/25 mg-trimethoprim 160 mg tablet (Bactrim DS) Allergies Allergy/AdvReac Type Severity Reaction Status Date / Time No Known Allergies Allergy Verified 04/28/25 13:03 [facility] Disclaimer: The information contained in this section may have been updated after the patient was seen, as this information can be updated by other users. Medical History Anemia Miscarriage Dental caries Surgical History History of excision of pilonidal cyst History of bladder surgery Family History Other Alcoholism Asthma Cancer Diabetes Heart attack Hyperlipidemia Hypertension No significant family history Stroke Social History Smoking Status: Current every day smoker tobacco type: e-cigarettes alcohol intake: never substance use type: denies use current occupational status: unemployed Travel in the last 8 weeks?: None household members: spouse, family and children marital status: do you feel safe at home: Yes victim of physical abuse: No victim of emotional abuse: No victim of sexual abuse: No Have you lived/traveled outside US in past 30 days?: No Contact w/someone who lives/traveled outside US past 30 days?: No Exposure to someone with infectious disease in past 14 days?: No Do you have a fever (greater than 100.4 F or 38 C)?: No Have you tested positive for COVID-19?: No Exposed to someone with COVID-19 in past 14 days?: No Do you have a sore throat?: No Do you have a cough?: No Do you have any weakness?: No Do you have any diarrhea?: No Are you experiencing any unusual bleeding?: No Do you have any muscle aches/pain?: No Do you have any abdominal pain?: Yes Are you experiencing loss of taste or smell?: No Other Medical History Have you received the Flu Vaccine for this season: No Have you received the Pneumonia Vaccine: No ROS Obtained: Yes All systems reviewed & no additional complaints except as documented and Yes Systems reviewed as appropriate & no additional complaints except as documented Physical Exam General General appearance: alert and in no apparent distress Head Head exam: atraumatic, normocephalic and normal inspection Eye Eye exam: Present normal appearance, PERRL and EOMI; Absent scleral icterus ENT ENT exam: Present normal exam and normal external ear exam Neck Neck exam: Present normal inspection and full ROM Chest Chest inspection: Present normal inspection and symmetric chest wall rise Respiratory Respiratory exam: Present normal lung sounds bilaterally; Absent respiratory distress or wheezes Cardiovascular Cardiovascular exam: Present regular rate, normal rhythm and normal heart sounds Abdominal Exam Abdominal exam: Present soft and distention; Absent tenderness, guarding or rebound Expanded Exam OB exam: Present other (rectal exam with an area of tenderness and fluctuance and the gluteal cleft) Extremities Exam Extremities exam: Present normal inspection and full ROM Back Exam Back exam: Present normal inspection and full ROM Neurological Exam Neurological exam: Present alert and oriented X3 Psychiatric Psychiatric exam: Present normal affect and normal mood Skin Skin exam: Present warm and dry Medical Decision Making Medical Records Medical records reviewed: Yes I reviewed the patient's medical records. Screening: Per USPSTF and CDC recommendations, given the prevalence of disease in our region, it is our hospital?s policy to screen for HIV and viral Hepatitis for all patients aged 18 and over and those with ongoing risk factors. [place] Inquiry Pt receiving controlled substance: No Vital Signs: 04/30/25 09:22 04/30/25 09:30 04/30/25 11:43 Temperature 97.5 F L 98.1 F Temperature Source Oral Pulse Rate 103 H 71 Pulse Rate [Left Radial] 97 H Respiratory Rate 20 18 Blood Pressure 120/85 111/78 Blood Pressure [Right Arm] 138/74 Blood Pressure Mean [Right Arm] 95 02 Sat by Pulse Oximetry 97 97 Oxygen Delivery Method Room Air Room Air Lab Data Lab results reviewed: Yes I reviewed the patient's lab results. Orders (Tests/Meds): ED MEDICATIONS Discontinued Medications Generic Name Dose Route Start Last Admin Trade Name Marycarmen PRN Reason Stop Dose Admin Lidocaine/Epinephrine 10 ml 04/30/25 10:29 04/30/25 10:31 Lidocaine 1% W/Epi 1:100,000 20ml Vial IM 04/30/25 10:30 10 ml ONCE ONE Administration ORDERS Category Date Time Status POCUS Point of Care (ER Only) Stat Exams 04/30/25 10:12 Completed Medical Decision Narrative: Is an otherwise healthy 24-year-old female who presented to the emergency department with rectal pain. On arrival, patient was hemodynamically stable with unremarkable vital signs. On exam, patient had some redness and pain near the gluteal cleft consistent with a pilonidal cyst. Bedside ultrasound was performed which showed pocket of fluid consistent with abscess. I&D was performed at the bedside, patient was injected with lidocaine, stab incision was performed with significant pus removal. Surgical loops were placed patient was discharged home with recommendations to remove the surgical loops in 5 to 7 days or to return to the emergency department. Patient was sent with Bactrim and wound care instructions and patient was otherwise discharged home in stable condition. Procedures Abscess I/D Site: other (gluteal cleft) Local Anesthetic: lidocaine 1% Amount of anesthesia used (mL): 5 Technique: incised with #11 blade Irrigation: Yes Packing used?: renato drain Critical Care Critical Care Time Critical Care Time: No
--- OUTSIDE RECORDS SUMMARY | 2025-04-30 09:40 | XMS_ITS | Clinical Summary ---
Author Organization [facility] Address [address] [place] [address] Phone Care Team Providers Care Entry Level Recruiter Name Role Phone Temo Marie MD Primary Care Provider [phone] Allergies No known active allergies Medications acetaminophen (TYLENOL) 500 mg Oral Tablet Take 2 Tabs by mouth every 6 hours as needed for Pain. 60 Tab 1 01/15/2019 Active ibuprofen (ADVIL;MOTRIN) 600 mg Oral Tablet Take 1 Tab by mouth every 6 hours as needed for Pain. 60 Tab 1 01/15/2019 Active Xdbnkfsn-Pj-Fdg- Fe-FA ( VITAMIN) Oral Tablet Take 1 [...] EY,DA NI BABY Ignacio Johnson MD Delivery Location:[facility] ([facility]) Last Filed Vital [...] Advance Directives For more information, please contact: [phone] * Full Code (Latest Code Status on File) Date Activated Date Inactivated Comments 01/13/2019 4:02 AM 01/15/2019 7:35 PM Care Teams Entry Level Recruiter Relationship Specialty Start Date End Date Temo Marie MD [address] [place] [address] PCP - General Pediatrics 10/30/15
[2025-04-30] MEDS: LIDOCAINE 1% W/EPI 1:100,000 20ML VIAL 10 ML IM (10:31)
[2025-04-30 11:43] VITALS: BP 111/78; PULSE 71; RESP 18; TEMP 36.7; O2SAT 98
== END 2025-04-30 11:43 | disposition home or self-care (01) ==
PROVIDERS: Emergency Provider Student in an Organized Health Care Education/Training Program
DX: L05.01 Pilonidal cyst with abscess (principal); F17.290 Nicotine dependence, other tobacco product, uncomplicated
CPT/HCPCS: 10061; 99283; J2004

== ENCOUNTER 2025-06-10 16:49 | Emergency (ER) | payer MEDICAID, SELFPAY ==
[2025-06-10 17:20] VITALS: BP 134/82; PULSE 109; RESP 20; TEMP 36.8; O2SAT 99; BMI 29.0
--- OUTSIDE RECORDS SUMMARY | 2025-06-10 17:40 | XMS_ITS | Clinical Summary ---
Author Organization [facility] Address [address] [place] [address] Phone Care Team Providers Care Reliability Engineer Name Role Phone Temo Marie MD Primary Care Provider [phone] Allergies No known active allergies Medications acetaminophen (TYLENOL) 500 mg Oral Tablet Take 2 Tabs by mouth every 6 hours as needed for Pain. 60 Tab 1 01/15/2019 Active ibuprofen (ADVIL;MOTRIN) 600 mg Oral Tablet Take 1 Tab by mouth every 6 hours as needed for Pain. 60 Tab 1 01/15/2019 Active Cihukziq-Pl-Bzh- Fe-FA ( VITAMIN) Oral Tablet Take 1 [...] EY,DA NI BABY Ignacio Johnson MD Delivery Location:[facility] ([facility]) Last Filed [...] Advance Directives For more information, please contact: [phone] * Full Code (Latest Code Status on File) Date Activated Date Inactivated Comments 01/13/2019 4:02 AM 01/15/2019 7:35 PM Care Teams Reliability Engineer Relationship Specialty Start Date End Date Temo Marie MD [address] [facility] [address] [place] [address] PCP - General Pediatrics 10/30/15
--- NOTE | 2025-06-10 18:06 | ED_ITS ---
<Statement entered by Allison Pace DO - 06/10/25 21:12> I was consulted by the JUAN, and we discussed the complexity of the problems being addressed. I approved the treatment and management plan for this patient's care in the emergency department, thus performing a substantive portion of the medical decision making. Allison Pace DO Discharge Plan Disposition Patient Disposition: Home, Self-Care Condition: Good Prescriptions Prescriptions: New amoxicillin-pot clavulanate 875-125 mg tablet 1 tab PO BID 5 Days Qty: 10 0RF No Action albuterol sulfate 90 mcg/actuation HFA aerosol inhaler 2 puff inhalation Q4-6H PRN (Reason: shortness of breath or wheezing) Qty: 8.5 0RF PNV,calcium 72-iron,carb-folic 29 mg iron- 1 mg tablet 1 tab PO DAILY Qty: 90 3RF hydroxyzine HCl 25 mg tablet 25 mg PO HS Qty: 30 5RF sulfamethoxazole-trimethoprim [Bactrim DS] 800-160 mg tablet 1 tab PO DAILY 5 Days Qty: 10 0RF Referrals Follow up/Referrals: Provider,MD Frankie [Primary Care Provider, Medical] - See instructions William Brice MD [Staff Physician, General Surgery] - See instructions Activity Restrictions/Add. Instructions Additional Instructions/Restrictions: Please return to the emergency department with any worsening signs or symptoms. Please take the packing out in 3 to 5 days, or sooner if it falls out on its own. Monitor for any worsening signs or symptoms. Please take your antibiotic with food as prescribed. Please follow-up with general surgery team in the upcoming days/weeks you will have to call to make this appointment Clinical Impressions Clinical Impression: Pilonidal abscess Instructions Patient Instructions: DI for Pilonidal Cyst Drainage or Removal Print Language Print Language: Kazakh Discharge ED Provider: Allison Pace General Adult HPI General Chief complaint: PAIN Stated complaint: bump in top of buttocks Time Seen by Provider: 06/10/25 17:59 Mode of Arrival: Ambulatory Source of Information: Patient Description of Symptoms (Recalled from ER Triage Doc. by RN): patient presents for a pilonidal cyst. she had one a few weeks ago and it was surgically removed as well. History of Present Illness HPI narrative: 24-year-old female presents to the emergency department with concern for a cyst or abscess on the gluteal cleft, patient states she noticed this 2 to 3 days ago, endorses pain and irritation to the area. Denies any fever chills discharge, abdominal pain chest pain shortness of breath no nausea no vomiting no constipation no diarrhea no urinary symptomatology, patient is a non-smoker denies any alcohol or drug use, other past medical history is consistent with CONCHIS/MDD, anemia, previous history of pilonidal cyst/abscess and previous history of pilonidal surgery, recent I&D for pilonidal cyst/abscess that was performed in April 2025. Initial triage vitals noted for tachycardia otherwise unremarkable. Please note that above description of symptoms, in this electronic medical record under categorization of recalled from ER triage doctor by RN are reflective of an initial nursing assessment, however, is not reflective of my full history and physical exam that was personally taken and clarified. Consequentially, this preceding description of symptoms, which may include the patient's categorized chief complaint in the EMR, do not reflect my personal clinical impression, and the ultimate description of history of present illness and patient stated complaints should be deferred to this section of the note. Unless stated otherwise or congruent with this section of the note, additional signs, symptoms, or incongruence should be interpreted as inaccurate with my clinical impression. Onset (ago): day(s) Related Data Previous Rx's ?Medication ?Instructions ?Recorded albuterol sulfate 90 mcg/actuation 2 puff inhalation Q 4-6H PRN 07/03/24 aerosol inhaler shortness of breath or wheez ing #8.5 grams vitamins with calcium 1 tab PO DAILY #90 tabs 07/03/24 no.72-iron 29 mg-folic acid 1 mg tablet hydroxyzine HCl 25 mg tablet 25 mg PO HS #30 tabs 10/17 sulfamethoxazole 800 1 tab PO DAILY 5 days #10 ta bs 04/30/25 mg-trimethoprim 160 mg tablet (Bactrim DS) amoxicillin 875 mg-potassium 1 tab PO BID 5 days #10 t abs 06/10/25 clavulanate 125 mg tablet Allergies Allergy/AdvReac Type Severity Reaction Status Date / Time No Known Allergies Allergy Verified 04/28/25 13:03 [facility] Disclaimer: The information contained in this section may have been updated after the patient was seen, as this information can be updated by other users. Medical History Anemia Miscarriage Dental caries Surgical History History of excision of pilonidal cyst History of bladder surgery Family History Other Alcoholism Asthma Cancer Diabetes Heart attack Hyperlipidemia Hypertension No significant family history Stroke Social History Smoking Status: Never smoker alcohol intake: never substance use type: denies use current occupational status: unemployed Travel in the last 8 weeks?: None household members: spouse, family and children marital status: do you feel safe at home: Yes victim of physical abuse: No victim of emotional abuse: No victim of sexual abuse: No Have you lived/traveled outside [place] in past 30 days?: No Contact w/someone who lives/traveled outside [place] past 30 days?: No Exposure to someone with infectious disease in past 14 days?: No Do you have a fever (greater than 100.4 F or 38 C)?: No Have you tested positive for COVID-19?: No Exposed to someone with COVID-19 in past 14 days?: No Do you have a sore throat?: No Do you have a cough?: No Do you have any weakness?: No Do you have any diarrhea?: No Are you experiencing any unusual bleeding?: No Do you have any muscle aches/pain?: No Do you have any abdominal pain?: No Are you experiencing loss of taste or smell?: No Other Medical History Have you received the Flu Vaccine for this season: No Have you received the Pneumonia Vaccine: No ROS Obtained: Yes All systems reviewed & no additional complaints except as documented Physical Exam General General appearance: alert and in no apparent distress Head Head exam: atraumatic and normocephalic Eye Eye exam: Present PERRL and EOMI ENT ENT exam: Present mucous membranes moist Neck Neck exam: Present normal inspection Chest Chest inspection: Present normal inspection and symmetric chest wall rise Respiratory Respiratory exam: Present normal lung sounds bilaterally; Absent respiratory distress Cardiovascular Cardiovascular exam: Present regular rate and normal rhythm Abdominal Exam Abdominal exam: Present soft; Absent tenderness Rectal Exam comment: I along with female nurse mill tender performed rectal examination, patient has a small approximately 3 to 4 cm pilonidal cyst/abscess noted to the left sided gluteal cleft, with no obvious erythema wound dehiscence or drainage Extremities Exam Extremities exam: Present normal inspection Neurological Exam Neurological exam: Present alert and oriented X3 Psychiatric Psychiatric exam: Present normal affect Skin Skin exam: Present warm and dry Medical Decision Making Medical Records Medical records reviewed: Yes I reviewed the patient's medical records. Screening: Per USPSTF and CDC recommendations, given the prevalence of disease in our region, it is our hospital?s policy to screen for HIV and viral Hepatitis for all patients aged 18 and over and those with ongoing risk factors. West Inquiry Pt receiving controlled substance: No West was queried for this patient: No Vital Signs: 06/10/25 17:20 Temperature 98.2 F Temperature Source Oral Pulse Rate [Right Radial] 109 H Respiratory Rate 20 Blood Pressure [Right Arm] 134/82 Blood Pressure Mean [Right Arm] 99 Blood Pressure Source [Right Arm] Automatic Cuff Blood Pressure Position [Right Arm] Sitting 02 Sat by Pulse Oximetry 99 Oxygen Delivery Method Room Air Medical Decision Narrative: 24-year-old female presents to the emergency department with left sided lateral gluteal cleft pain and irritation for 2 to 3 days differential diagnosis to include but not limited to Anal fissure, external hemorrhoids, pilonidal cyst, pilonidal abscess, hidradenitis suppurativa among others. I discussed this patient's case with the attending physician Dr. Pace I discussed need for incision and drainage with the patient at bedside, all risk and benefits of procedure discussed with patient at bedside patient elected to proceed. I utilized sterile technique, and needle aspirated with 1% lidocaine with 3 mL, after anesthetized nation with Hibiclens and alcohol swab, I did make a small linear to midline incision with an 11 blade, and utilized a plain packing patient tolerated procedure well. Will prescribe the patient Augmentin 875 mg p.o. twice daily for 5 days, patient voiced understanding and agreed with the current treatment plan/discharge plan. Strict ED return precautions given patient will need general surgery follow-up. Patient voiced understanding once again. Procedures Abscess I/D Site: back and other (Left lateral gluteal cleft pilonidal cyst/abscess) Side (if applicable): left Sedation/analgesia: none Local Anesthetic: lidocaine 1% Amount of anesthesia used (mL): 3 Technique: needle aspiration and incised with #11 blade Amount of fluid expressed (mL): 50 Irrigation: No Packing used?: plain Complications: pain and bleeding Critical Care Critical Care Time Critical Care Time: No
[2025-06-10 19:25] VITALS: BP 119/66; PULSE 95; RESP 16; TEMP 36.8; O2SAT 99
== END 2025-06-10 19:27 | disposition home or self-care (01) ==
PROVIDERS: Emergency Provider Emergency Medicine
DX: L05.01 Pilonidal cyst with abscess (principal)
CPT/HCPCS: 10061; 99282; 99283